=== PATIENT | female | born 1945 | race Caucasian/White ===

== ENCOUNTER 2022-09-26 07:52 | Observation (INO) | payer MEDICARE ==
[2022-09-25 15:30] LABS: BASOPHILS % (AUTO) 0.9 % (0.0-5.0); EOSINOPHILS % (AUTO) 1.9 % (0.0-8.0); HEMATOCRIT 40.2 % (36-48); LYMPHOCYTES % (AUTO) 29.9 % (21.0-51.0); MEAN CORPUSCULAR HEMOGLOBIN 30.3 pg (27.0-33.0); MEAN CORPUSCULAR HGB CONC 32.6 g/dL (32.0-36.0); MEAN CORPUSCULAR VOLUME 92.8 fL (79-99); MONOCYTES % (AUTO) 7.1 % (3.0-13.0); NEUTROPHILS % (AUTO) 59.6 % (40.0-77.0); PLATELET COUNT (AUTO) 250 K/uL (130-400); RED BLOOD CELL COUNT(AUTO) 4.33 MIL/uL (4.00-5.50); RED CELL DISTRIBUTION WIDTH 12.4 % (11.0-15.5); WHITE BLOOD COUNT (AUTO) 7.8 K/uL (4.8-10.8)
[2022-09-25 15:57] LABS: CREATININE 0.6 mg/dL (0.5-1.5); POTASSIUM 3.4 mmol/L (3.5-5.1)
[2022-09-25 16:05] VITALS: BP 152/80
[2022-09-26] VITALS (26 sets, daily range): BP systolic 105–196; BP diastolic 53–94
[~2022-09-26] VITALS: Ht 157.5 cm; Wt 77.6 kg
[2022-09-26] MEDS: TRANEXAMIC ACID 1000MG/10ML IJ SCH ×2 (06:00→13:20)
[~2022-09-26 07:52] MED LIST: ALEN35TA53 PO; ATOR20TA65 PO; BACL5TAB PO; BUPR100T13 PO; CLINDAMYCIN IVPB 600MG/50ML 50 ML IV SCH; GABA-529 PO; LACTATED RINGERS 1000ML 1,000 ML IV SCH; LORA10TA7 PO; LOSA50TA64 PO; METF-444 PO; METO-408 PO; MONT-39 PO; MULT-1367 PO; PANT20TA18 PO; SERT-440 PO; TOPI50TA24 PO; calcium PO; fluticasone NASAL
[2022-09-26] MEDS ORDERED: ROPIVICAINE 250MG+KETOROLAC 15MG+EPINEPHRINE 0.3+CLONIDINE 80 IV PRN ×5 (08:00)
[2022-09-26] MEDS ORDERED: 0.9%NACL 1000ML 1,000 ML IV ONE (08:11)
[2022-09-26] MEDS ORDERED: POTASSIUM CHLORIDE 10% ELIXIR 20 MEQ/15 ML UDCUP PO PRN (09:30)
[2022-09-26] MEDS ORDERED: ONDANSETRON 4MG INJ IVP PRN (09:30)
[2022-09-26] MEDS ORDERED: LIDOCAINE HCL-MPF 1% 2ML VIAL IV PRN (09:30)
[2022-09-26] MEDS ORDERED: POTASSIUM CHLORIDE 20MEQ/100ML 100 ML IV PRN (09:30)
[2022-09-26] MEDS ORDERED: MORPHINE 4 MG SYG IVP PRN (09:30)
[2022-09-26] MEDS ORDERED: HYDROCODONE/ACETAMINOPHEN 5/325 MG TAB PO PRN (09:30)
[2022-09-26] MEDS ORDERED: FERROUS FUMARATE 324 MG TABLET PO PRN (09:30)
[2022-09-26] MEDS: 0.9%NACL 1000ML 1,000 ML IV SCH ×2 (09:30→22:23)
[2022-09-26] MEDS ORDERED: TRANEXAMIC ACID 1000MG/10ML ONE (09:53)
[2022-09-26] MEDS: INSULIN HUMULIN R 100 UNIT/ML 3ML SQ SCH ×3 (11:30→19:48)
[2022-09-26] MEDS ORDERED: FENTANYL CITRATE PF 50 MCG/1 ML 5ML AMP IV ONE (11:59)
[2022-09-26] MEDS ORDERED: GLYCOPYRROLATE 1 MG/5 ML SYRINGE ONE (11:59)
[2022-09-26] MEDS ORDERED: ROCURONIUM 10MG/1ML SYR 10 MG/ML ML ONE (11:59)
[2022-09-26] MEDS ORDERED: LIDOCAINE PF 100MG/5ML (2%) SYRINGE 5ML ONE (11:59)
[2022-09-26] MEDS ORDERED: PROPOFOL 10 MG/ML 20ML VIAL IV ONE (11:59)
[2022-09-26] MEDS: IBUPROFEN 800MG + NS 250ML IV SCH ×2 (12:30→19:47)
[2022-09-26] MEDS ORDERED: ONDANSETRON 4MG INJ ONE (12:44)
[2022-09-26] MEDS ORDERED: HYDROMORPHONE 1 MG INJ ONE (13:31)
[2022-09-26] MEDS ORDERED: CEFAZOLIN SODIUM 1 GM VIAL IVP SCH (14:30)
[2022-09-26] MEDS ORDERED: NEOSTIGMINE 5MG/5ML SYR IV ONE (14:49)
[2022-09-26] MEDS: CLINDAMYCIN IVPB 300MG/50ML 50 ML IV SCH ×2 (15:00→19:47)
[2022-09-26] MEDS ORDERED: HYDRALAZINE 20MG/ML VIAL ONE (15:17)
[2022-09-26] MEDS: ACETAMINOPHEN 1,000 MG/100 ML VIAL IV SCH ×2 (16:17→21:57)
[2022-09-26] MEDS: MONTELUKAST SODIUM 10 MG TAB PO SCH (19:46)
[2022-09-26] MEDS: GABAPENTIN 100 MG CAPSULE PO SCH (19:46)
[2022-09-26] MEDS: ASPIRIN 81 MG EC TAB PO SCH (19:46)
[2022-09-26] MEDS: BUPROPION 100 MG PO SCH (19:48)
[2022-09-26] MEDS: KCL 20 MEQ ERTAB PO PRN ×2 (19:48→23:49)
[2022-09-26] MEDS: TOPIRAMATE 100 MG TAB PO SCH (19:48)
[2022-09-26] MEDS: HYDROCODONE/ACETAMINOPHEN 10/325 MG TAB PO PRN (23:50)
[2022-09-27] VITALS: BP 103/71
[2022-09-27 04:00] VITALS: BP 124/54
[2022-09-27] MEDS: IBUPROFEN 800MG + NS 250ML IV SCH (04:50)
[2022-09-27] MEDS: CLINDAMYCIN IVPB 300MG/50ML 50 ML IV SCH (04:50)
[2022-09-27] MEDS: ACETAMINOPHEN 1,000 MG/100 ML VIAL IV SCH (04:50)
[2022-09-27 05:37] LABS: HEMATOCRIT 38.7 % (36-48); MEAN CORPUSCULAR HEMOGLOBIN 30.9 pg (27.0-33.0); MEAN CORPUSCULAR HGB CONC 32.6 g/dL (32.0-36.0); MEAN CORPUSCULAR VOLUME 94.9 fL (79-99); RED BLOOD CELL COUNT(AUTO) 4.08 MIL/uL (4.00-5.50); RED CELL DISTRIBUTION WIDTH 12.7 % (11.0-15.5); WHITE BLOOD COUNT (AUTO) 11.5 K/uL (4.8-10.8)
[2022-09-27 05:47] LABS: CREATININE 0.7 mg/dL (0.5-1.5); POTASSIUM 3.6 mmol/L (3.5-5.1)
[2022-09-27] MEDS: INSULIN HUMULIN R 100 UNIT/ML 3ML SQ SCH ×4 (06:05→20:48)
[2022-09-27] MEDS: KCL 20 MEQ ERTAB PO PRN ×2 (06:24→08:40)
[2022-09-27] MEDS: HYDROCODONE/ACETAMINOPHEN 10/325 MG TAB PO PRN ×3 (06:24→20:54)
[2022-09-27] MEDS: PANTOPRAZOLE 40 MG TAB DR PO SCH (08:39)
[2022-09-27] MEDS: METOPROLOL SUCCINATE 25 MG TAB.SR.24H PO SCH (08:40)
[2022-09-27] MEDS: ASPIRIN 81 MG EC TAB PO SCH ×2 (08:40→20:46)
[2022-09-27] MEDS: POLYETHYLENE GLYCOL 3350 17 GM POWD.PACK PO SCH (08:40)
[2022-09-27] MEDS: METFORMIN HCL 500 MG TABLET PO SCH (08:40)
[2022-09-27] MEDS: BACLOFEN 10 MG TABLET PO SCH (08:40)
[2022-09-27] MEDS: BUPROPION 100 MG PO SCH ×2 (08:40→20:48)
[2022-09-27] MEDS: SERTRALINE HCL 50 MG TABLET PO SCH (08:40)
[2022-09-27] MEDS ORDERED: LOSARTAN 50 MG TABLET PO SCH (09:00)
[2022-09-27] MEDS: TOPIRAMATE 100 MG TAB PO SCH ×2 (09:00→20:47)
[2022-09-27 12:00] VITALS: BP 118/59
[2022-09-27 16:00] VITALS: BP 132/94
[2022-09-27 20:15] VITALS: BP 142/68
[2022-09-27] MEDS: MONTELUKAST SODIUM 10 MG TAB PO SCH (20:46)
[2022-09-27] MEDS: GABAPENTIN 100 MG CAPSULE PO SCH (20:46)
[2022-09-27 23:13] VITALS: BP 136/66
[2022-09-28 03:59] VITALS: BP 139/81
[2022-09-28] MEDS: HYDROCODONE/ACETAMINOPHEN 10/325 MG TAB PO PRN ×3 (06:50→13:27)
[2022-09-28] MEDS: INSULIN HUMULIN R 100 UNIT/ML 3ML SQ SCH ×3 (06:52→16:30)
[2022-09-28 08:00] VITALS: BP 128/61
[2022-09-28] MEDS: BUPROPION 100 MG PO SCH (09:00)
[2022-09-28] MEDS: POLYETHYLENE GLYCOL 3350 17 GM POWD.PACK PO SCH (09:00)
[2022-09-28] MEDS: TOPIRAMATE 100 MG TAB PO SCH (09:11)
[2022-09-28] MEDS: METFORMIN HCL 500 MG TABLET PO SCH (09:12)
[2022-09-28] MEDS: METOPROLOL SUCCINATE 25 MG TAB.SR.24H PO SCH (09:12)
[2022-09-28] MEDS: BACLOFEN 10 MG TABLET PO SCH (09:12)
[2022-09-28] MEDS: PANTOPRAZOLE 40 MG TAB DR PO SCH (09:12)
[2022-09-28] MEDS: ASPIRIN 81 MG EC TAB PO SCH (09:12)
[2022-09-28] MEDS: SERTRALINE HCL 50 MG TABLET PO SCH (09:12)
[2022-09-28 11:49] VITALS: BP 147/68
[2022-09-28 15:48] VITALS: BP 139/65
[2022-09-29] MEDS ORDERED: BISACODYL 10 MG SUPP.RECT RC PRN (09:30)
== END 2022-09-28 19:25 ==
LOC: DAH 07:52 → DAHIP 07:53 → DAH 07:53 → 3AH 17:17
PROVIDERS: ADMIT Orthopaedic Surgery; ATTEND Orthopaedic Surgery
DX: M17.12 Unilateral primary osteoarthritis, left knee (principal); Z20.822 Contact with and (suspected) exposure to COVID-19; I10 Essential (primary) hypertension; E11.9 Type 2 diabetes mellitus without complications; Z79.899 Other long term (current) drug therapy; Z68.31 Body mass index [BMI] 31.0-31.9, adult
CPT/HCPCS: 80048 ×2; 85025; 87426; 36415 ×2; 87641; 27447; 96365; 96367; 96368; 82948 ×10; 97039 ×4; 96366; 85027; 97161; 97116 ×4; 97530 ×3; G0378 ×52; A4663; J7030 ×2; A4649 ×4; J3010; J1170; J3490 ×4; J2710; J2001; J0171; J0360; J2704; J2405; J2795; J1885; J1741; J0735; G0168; C1776 ×4; A6255; A6254; A5120; A4215; A4223; A4222; A4221

== ENCOUNTER 2024-08-01 10:59 | Inpatient (IN) | payer MEDICARE ==
[~2024-08-01] VITALS: Ht 157.5 cm; Wt 85.7 kg
[~2024-08-01 10:59] MED LIST changes: -CLINDAMYCIN IVPB 600MG/50ML 50 ML IV SCH; -LACTATED RINGERS 1000ML 1,000 ML IV SCH; -LOSA50TA64 PO; -MULT-1367 PO; +TOPI-97 PO; -TOPI50TA24 PO; -calcium PO
--- NOTE | 2024-08-01 11:05 | NUR ---
PT WAS ASSIGNED TO MY ED BED 19 BUT NOT PLACED IN THERE YET
--- NOTE | 2024-08-01 11:12 | EKG ---
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
--- NOTE | 2024-08-01 11:18 | NUR ---
PT JUST NOW PLACED IN MY ED BED 19
--- NOTE | 2024-08-01 11:37 | ERN ---
General Chief Complaint: Diarrhea Stated Complaint: DIARRHEA Time Seen by MD: 11:01 History of Present Illness Initial Comments 79-year-old female who presents for diarrhea. Patient reports that in April, about three months ago, she began with diarrhea. Has been waxing and waning but over the last few days she has been going 5+ times a day with the explosive watery diarrhea. She reports that it comes fast she can not make it to the restroom. She reports some lower abdominal cramping. No rectal pain. No vomiting. No fevers. She was p.o. tolerant, but every time she eats she stools. She has been to her primary doctor without any studies performed. She reports that it is getting bad enough that she was having a hard time with her ADLs because she is frequently stooling. She has not visited a GI doctor. She has been taking Imodium multiple times a day. Medical history: Diabetes, hypertension Surgical history: Appendectomy, cholecystectomy, hysterectomy PCP: Diana Allergies: Coded Allergies: Penicillins (Unverified Allergy, Unknown, 09/25/22) Sulfa (Sulfonamide Antibiotics) (Unverified Allergy, Unknown, 09/25/22) formaldehyde (Unverified Allergy, Unknown, 09/25/22) levofloxacin (Unverified Allergy, Unknown, 09/25/22) Home Meds Reported Medications Topiramate (Topiramate) 50 Mg Tablet, 50 MG PO BID, TAB 09/25/22 Sertraline HCl (Sertraline HCl) 100 Mg Tablet, 150 MG PO AM, TAB 09/25/22 Pantoprazole Sodium (Pantoprazole Sodium) 20 Mg Tablet.dr, 20 MG PO AM, TAB 09/25/22 Montelukast Sodium (Montelukast Sodium) 10 Mg Tablet, 10 MG PO HS, TAB 09/25/22 Metoprolol Succinate (Metoprolol Succinate) 25 Mg Tab.er.24h, 25 MG PO AM, TAB 09/25/22 Metformin HCl (Metformin HCl) 500 Mg Tablet, 500 MG PO AM, TAB 09/25/22 Loratadine (Loratadine) 10 Mg Tablet, 10 MG PO AM, TAB 09/25/22 Gabapentin (Gabapentin) 100 Mg Capsule, 100 MG PO HS, CAP 09/25/22 [fluticasone] No Conflict Check, 2 SPRAYS NASAL AD PRN for allergies 09/25/22 Bupropion HCl (Bupropion HCl) 100 Mg Tablet, 100 MG PO BID, TAB 09/25/22 Baclofen (Baclofen) 5 Mg Tablet, 5 MG PO DAILY, TAB 09/25/22 Atorvastatin Calcium (Atorvastatin Calcium) 20 Mg Tablet, 20 MG PO HS, TAB 09/25/22 Alendronate Sodium (Alendronate Sodium) 35 Mg Tablet, 35 MG PO weekly, TAB 09/25/22 Past Medical History Past Medical History: Diabetes-Type II, High Cholesterol, Hypertension Past Surgical History: Appendectomy, Cholecystectomy, Other Surgical History Other: BILAT KNEE ROS Dictation CONSTITUTIONAL: No chills, no fever, no weakness, no diaphoresis, no malaise. HEAD/FACE: No signs of trauma. EENT: No eye pain, no blurred vision, no tearing, no double vision, no ear pain, no ear discharge, no nose pain, no nasal congestion, no throat pain, no throat swelling, no mouth pain. RESPIRATORY: No cough, no orthopnea, no SOB, no stridor, no wheezing. CARDIOVASCULAR: No chest pain, no edema, no palpitations, no syncope. GASTROINTESTINAL/ABDOMINAL: Diarrhea GENITOURINARY: No abnormal discharge, no dysuria, no frequent urination, no hematuria. No complaints of pain in the genitals. MUSCULOSKELETAL: No back pain, no gout, no joint pain, no joint swelling, no muscle pain, no muscle stiffness, no neck pain. INTEGUMENTARY: No change in color, no change in hair/nails, no dryness, no lesion, no lumps, no rash. NEUROLOGICAL/PSYCH: No anxiety, not depressed, no emotional problem, no headache, no numbness, no pre-existing deficit, no history of seizures, no tremors, no weakness. HEMATOLOGIC/LYMPHATIC: Not anemic, no history of blood clots, no apparent bleeding, no bruising, glands not swollen. All Systems Negative, Except as Noted. Physical Exam Physical Exam Dictation VITAL SIGNS: Reviewed. GENERAL APPEARANCE: Alert, oriented x3, no acute distress, HEAD AND FACE: Non-traumatic. EYES: PERRL, pink conjunctivas, eyelid no trauma, anterior chamber clear. EARS: Pinnas intact and no signs of trauma or erythema. Ear canals clear and no discharge. TMs no erythema. NOSE: No discharge, no bleeding. OROPHARYNX: Mouth normal, teeth no caries, tongue pink. Pharynx clear, no erythema. Tonsils no exudates, no abscesses noted. Mucous membrane moist. NECK: Supple, non-tender, no thyromegaly, no masses, no JVD, no bruits. BREAST: Deferred. CHEST: No tenderness, no crepitus, no paradoxical movement, no retractions. LUNGS: Clear, well-ventilated, symmetric, no rales, no wheezing, no rhonchi, no stridor, good breath sounds bilaterally. HEART: Regular rate, regular rhythm, no murmur, no gallops. VASCULAR: No peripheral edema. ABDOMEN: Soft, positive bowel sounds, nondistended, no guarding, nontender, no rebound, no masses no hepatomegaly, no splenomegaly, no Tyler's sign, no hernias. RECTAL: Deferred. GENITAL: Deferred. NEUROLOGICAL: Normal speech, gross motor function intact, gross sensory function intact. MUSCULOSKELETAL: Neck nontender, full range of motion, back nontender, full range of motion. EXTREMITIES: Nontender, full range of motion. SKIN: Color pink, dry, no turgor, no rash, no lacerations, no abrasions, no contusions. LYMPHATICS: Deferred. Results Laboratory and Microbiology Lab and Micro Result Laboratory Tests Test 08/01/24 11:30 08/01/24 11:37 Urine Color YELLOW (YELLOW) Urine Appearance CLOUDY (CLEAR) H Urine pH 5.5 (5.0-8.0) Urine Specific [place] 1.023 (1.001-1.031) Urine Protein 70 mg/dL (NEGATIVE) H Urine Glucose (UA) NEGATIVE mg/dL (NEGATIVE) Urine Ketones NEGATIVE mg/dL (NEGATIVE) Urine Occult Blood LARGE (NEGATIVE) H Urine Nitrate NEGATIVE (NEGATIVE) Urine Bilirubin NEGATIVE mg/dL (NEGATIVE) Urine Urobilinogen 0.2 mg/dL (0.2-1.0) Urine Leukocyte Esterase 500 Yousif/uL (NEGATIVE) H Urine RBC 26-50 /HPF (0-1) H Urine WBC TNTC /HPF (0-1) H Urine Squamous Epithelial Cells RARE /HPF (0-2) Urine Bacteria FEW /HPF (None Seen) Urine Hyaline Casts 2-5 /LPF (0-1 /LPF) H White Blood Count 5.0 K/uL (4.8-10.8) Red Blood Count 4.69 MIL/uL (4.00-5.50) Hemoglobin 14.4 g/dL (12.0-16.0) Hematocrit 44.1 % (36-48) Mean Corpuscular Volume 94.0 fL (79-99) Mean Corpuscular Hemoglobin 30.7 pg (27.0-33.0) Mean Corpuscular Hemoglobin Concent 32.7 g/dL (32.0-36.0) Red Cell Distribution Width 12.2 % (11.0-15.5) Platelet Count 205 K/uL (130-400) Mean Platelet Volume 10.1 fL (7.5-10.5) Immature Granulocyte % (Auto) 0.4 % (0-1) Neutrophils (%) (Auto) 63.0 % (40.0-77.0) Lymphocytes (%) (Auto) 22.9 % (21.0-51.0) Monocytes (%) (Auto) 10.9 % (3.0-13.0) Eosinophils (%) (Auto) 2.0 % (0.0-8.0) Basophils (%) (Auto) 0.8 % (0.0-5.0) Neutrophils # (Auto) 3.1 K/uL (1.8-7.7) Lymphocytes # (Auto) 1.1 K/uL (1.0-4.8) Monocytes # (Auto) 0.5 K/uL (0.1-1.0) Eosinophils # (Auto) 0.10 K/uL (0.00-0.70) Basophils # (Auto) 0.04 K/uL (0.00-0.20) Absolute Immature Granulocyte (auto 0.02 K/uL (0-1) Nucleated Red Blood Cells 0.0 % (0.0-0.19) Sodium Level 138 mmol/L (136-145) Potassium Level 3.2 mmol/L (3.5-5.1) L Chloride Level 103 mmol/L (101-111) Carbon Dioxide Level 23 mmol/L (21-32) Blood Urea Nitrogen 16 mg/dL (7-18) Creatinine 0.7 mg/dL (0.5-1.0) Glomerular Filtration Rate Calc 87 mL/min (>90) Random Glucose 106 mg/dL (70-105) H Total Calcium 9.0 mg/dL (8.5-10.1) Total Bilirubin 0.8 mg/dL (0.2-1.0) Direct Bilirubin 0.1 mg/dL (0.0-0.3) Aspartate Amino Transf (AST/SGOT) 44 U/L (10-37) H Alanine Aminotransferase (ALT/SGPT) 42 U/L (12-78) Alkaline Phosphatase 86 U/L (50-136) C-Reactive Protein, Quantitative 26.30 mg/L (0.5-3.0) H Total Protein 7.2 g/dL (6.0-8.3) Albumin 3.6 g/dL (3.5-5.0) Lipase 21 U/L (16-77) MDM CC: Diarrhea, multiple episodes daily increasing recently Historian: Patient Comorbidities: Advanced age, diabetes, hypertension, dyslipidemia, osteoporosis, neuropathy Limitations by social determinants of health: None differential diagnosis: Dehydration, electrolyte abnormality, infectious cause, inflammatory bowel disease, other. Vital signs: Stable remained stable in the ER. Labs no leukocytosis no anemia. Metabolic panel shows, CRP is mildly elevated at 26 otherwise lipase and liver enzymes are all normal. Urinalysis does show occult blood leuk esterase WBCs. We will treat his UTI. CT scan of the abdomen and pelvis with contrast per my independent interpretation shows some generalized gastrointestinal swelling consistent with an enteritis. There is no free air or major surgical pathology per independent interpretation. Patient received 1 L normal saline, Rocephin , potassium bicarb in the ER. We will admit for dehydration, hypokalemia, UTI. consultation: Hospitalist for admission. ED Course Orders Procedure Category Date Status Time Vital Signs Per CPOE 08/01/24 Transmitted Routine 11: Saline Lock Iv CPOE 08/01/24 Transmitted 11:02 Cbc With Differential LAB 08/01/24 Complete 11:02 Lipase LAB 08/01/24 Complete 11:02 Urinalysis Profile LAB 08/01/24 Complete 11:02 12 Lead Ekg Tracing- EKG 08/01/24 Resulted Technical 11:02 Basic Metabolic Panel LAB 08/01/24 Complete 11:02 Stool Panel Gi By Pcr LAB 08/01/24 Logged 11:12 Hepatic Function Panel LAB 08/01/24 Complete 11:12 0.9%Nacl 1000ml (Ns PHA 08/01/24 Complete 1000ml) 11:30 Ct Abdomen/Pelvis CT 08/01/24 Taken W/Contrast 11:31 Culture Urine CRISTOFER 08/01/24 Logged 12:23 Crp Quantitative LAB 08/01/24 Complete 11:37 Iohexol (Omnipaque) PHA 08/01/24 Complete 13:13 Iohexol (Omnipaque) PHA 08/01/24 Complete 13:27 Current Medications Medications (Trade) Dose Ordered Sig/Edison Route PRN Reason Start Time Stop Time Status Last Admin Dose Admin Iohexol (Omnipaque) 75 ml STK-MED ONCE IV 08/01/24 13:27 08/01/24 13:27 DC Iohexol (Omnipaque) 35,000 mg STK-MED ONCE IV 08/01/24 13:13 08/01/24 13:14 DC Sodium Chloride 1,000 ml @ 0 mls/hr ONCE ONCE IV 08/01/24 11:30 08/01/24 11:31 DC 08/01/24 12:38 Vital Signs Date Time Temp Pulse Resp B/P (MAP) Pulse Ox O2 Delivery O2 Flow Rate FiO2 08/01/24 11:00 98.4 91 20 152/84 96 Room Air 0 DX & DISP Disposition: Inpatient Departure Impression: Primary Impression: Diarrhea Additional Impressions: Hypokalemia, Dehydration, UTI (urinary tract infection) Condition: Stable Referrals: RONALD WALKER MD (PCP) RADHA LOPEZ DO Aug 01, 2024 11:37
[2024-08-01 12:03] LABS: BASOPHILS # (AUTO) 0.04 K/uL (0.00-0.20); BASOPHILS % (AUTO) 0.8 % (0.0-5.0); HEMATOCRIT 44.1 % (36-48); IMMATURE GRANULOCYTE ABSOLUTE 0.02 K/uL (0-1); LYMPHOCYTES # (AUTO) 1.1 K/uL (1.0-4.8); LYMPHOCYTES % (AUTO) 22.9 % (21.0-51.0); MEAN CORPUSCULAR HEMOGLOBIN 30.7 pg (27.0-33.0); MEAN CORPUSCULAR HGB CONC 32.7 g/dL (32.0-36.0); MONOCYTES # (AUTO) 0.5 K/uL (0.1-1.0); MONOCYTES % (AUTO) 10.9 % (3.0-13.0); NEUTROPHILS # (AUTO) 3.1 K/uL (1.8-7.7); PLATELET COUNT (AUTO) 205 K/uL (130-400); RED BLOOD CELL COUNT(AUTO) 4.69 MIL/uL (4.00-5.50); RED CELL DISTRIBUTION WIDTH 12.2 % (11.0-15.5)
[2024-08-01 12:12] LABS: ALBUMIN 3.6 g/dL (3.5-5.0); BILIRUBIN,DIRECT 0.1 mg/dL (0.0-0.3); BILIRUBIN,TOTAL 0.8 mg/dL (0.2-1.0); TOTAL PROTEIN, SERUM 7.2 g/dL (6.0-8.3)
[2024-08-01 12:21] LABS: APPEARANCE,URINE CLOUDY (CLEAR); BILIRUBIN,URINE NEGATIVE (NEGATIVE); COLOR,URINE YELLOW (YELLOW); GLUCOSE, URINE (UA) NEGATIVE (NEGATIVE); KETONES,URINE NEGATIVE (NEGATIVE); LEUKOCYTE ESTERASE ,URINE 500 Leu/uL (NEGATIVE); NITRATE,URINE NEGATIVE (NEGATIVE); OCCULT BLOOD,URINE LARGE (NEGATIVE); PH,URINE 5.5 (5.0-8.0); PROTEIN,URINE 70 mg/dL (NEGATIVE); UROBILINOGEN,URINE 0.2 mg/dL (0.2-1.0)
[2024-08-01 12:22] LABS: ADD UA MICROSCOPIC YES
[2024-08-01 12:30] LABS: BACTERIA,URINE FEW /HPF (None Seen); MUCUS,URINE MANY LPF (None Seen); RBC,URINE 26-50 /HPF (0-1); SQUAMOUS EPITHELIAL CELL,UR RARE /HPF (0-2); WBC,URINE TNTC /HPF (0-1)
[2024-08-01] MEDS: 0.9%NACL 1000ML 1,000 ML IV ONE (12:38)
[2024-08-01 12:46] LABS: CREATININE 0.7 mg/dL (0.5-1.0); POTASSIUM 3.2 mmol/L (3.5-5.1)
[2024-08-01] MEDS ORDERED: IOHEXOL 350 MG/ML 100ML INFUS..BTL IV ONE (13:13)
[2024-08-01] MEDS ORDERED: IOHEXOL-350 75 ML VIAL IV ONE (13:27)
--- NOTE | 2024-08-01 13:48 | NUR ---
PT JUST RETURNED FROM CT SCAN
--- NOTE | 2024-08-01 14:04 | HMCIMG ---
CT ABDOMEN/PELVIS W/CONTRAST REASON: diarrhea, lower abd pain COMPARISON: None. TECHNIQUE: Images are obtained from lung bases through the symphysis pubis following IV contrast, 75 cc Omnipaque 350. FINDINGS: Lung bases are clear. There are no focal liver lesions. There are normal-appearing kidneys.. Spleen and pancreas appear unremarkable. There has been a previous cholecystectomy. There are mildly prominent fluid-filled loops of large and small bowel. There is no evidence of transition zone. Findings are nonspecific, most consistent with gastroenteritis or ileus. There is no evidence of obstruction. The appendix was not separately identified. There is no evidence of free fluid or intraperitoneal air. There are no focal fluid collections. Aorta and retroperitoneum appear normal as do pelvic soft tissue structures. The anterior abdominal wall is intact. Osseous structures appear unremarkable. IMPRESSION: 1. Fluid-filled loops of large and small bowel, nonspecific, often a reflection of gastroenteritis or ileus. 2. Absent gallbladder 3. Otherwise unremarkable exam. CT was performed with one or more following dose reduction techniques: automated exposure control, adjustment of the mA and kv according to patient's size, or use of a iterative reconstruction technique.
[2024-08-01] MEDS: cefTRIAXone 1G VIAL IVPB ONE (14:32)
--- NOTE | 2024-08-01 15:08 | NUR ---
DR ROSE WAS IN TO ASSESS/EVALUATE THE PT.
--- NOTE | 2024-08-01 15:29 | NUR ---
INFECTIOUS DISEASE CONSULT: DR VAZQUEZ JUST INFORMED OF PT CONSULT AND HAS RETURNED ACKNOWLEDGEMENT
[2024-08-01] MEDS ORDERED: MAGNESIUM 2GM PREMIX 50ML 50 ML IV SCH (15:30)
[2024-08-01] MEDS ORDERED: PoTASSium chl 10% ELIXIR 20MEQ 20 MEQ/15 ML UDCUP PO PRN (15:30)
[2024-08-01] MEDS ORDERED: PoTASSium chloRIDE 20MEQ/100ML 100 ML IV PRN (15:30)
[2024-08-01] MEDS ORDERED: ondanSETRON 4MG INJ IVP PRN (15:30)
[2024-08-01 15:50] LABS: INR 1.06 (0.85-1.15); PROTHROMBIN TIME 11.4 SEC (9.6-11.6)
[2024-08-01 15:52] LABS: PARTIAL THROMBOPLASTIN TIME 27.8 SEC (26.3-35.5)
[2024-08-01] MEDS: 0.9%NACL 1000ML 1,000 ML IV SCH (16:14)
--- NOTE | 2024-08-01 16:17 | NUR ---
BSC PLACED AT BEDSIDE
--- NOTE | 2024-08-01 16:42 | NUR ---
GI CONSULT: DR ROSE SPOKE W/GI DOCTOR
--- NOTE | 2024-08-01 17:18 | NUR ---
CT HEAD EXAM DELAY DUE TO PATIENT HAD A PRIOR ABD/PEL WITH IV CONTRAST. ER NURSE WAS NOTIFIED & NURSE WILL NOTIFY DOCTOR. CT HEAD WILL BE DONE LATER TODAY.
[2024-08-01] MEDS ORDERED: ALEN70TA80 PO (17:20)
[2024-08-01] MEDS ORDERED: ATOR40TA69 PO (17:20)
[2024-08-01] MEDS ORDERED: METO-391 PO (17:20)
[2024-08-01] MEDS ORDERED: FLUT16H NS (17:20)
[2024-08-01] MEDS ORDERED: FURO40TA7 PO (17:20)
--- NOTE | 2024-08-01 17:20 | NUR ---
MEDICATION RECONCILIATION: DONE
[2024-08-01] MEDS: metOPROLol sucCINATE 50 MG TAB.SR.24H PO SCH (17:40)
[2024-08-01] MEDS: PEG 3350/NA SULF,BICARB,CL/KCL 4000 ML SOLN PO SCH (17:40)
--- NOTE | 2024-08-01 17:45 | NUR ---
GI PREP: GOLYTLY AT BEDSIDE AND PT NOW DRINKING
--- NOTE | 2024-08-01 18:20 | NUR ---
BED ASSIGNMENT: Addendum: 08/01/24 at 1830 by [email or web address] BED 306 ASSIGNED BY Oliver WU RN
--- NOTE | 2024-08-01 18:25 | HP ---
[facility] H[facility]ORY [facility] PHYS[facility] Date of Service: Aug 01, 2024 Time of Service: 18:25 HISTORY OF PRESENT ILLNESS: Date of Service: 08/01/2024 79-year-old female with underlying history of hypertension, SVT, hyperlipidemia, osteoporosis, history of multiple medication allergies who presented to the ER for further evaluation of diarrhea. Patient states that her symptoms started in April where she has been having nonbloody loose stool that has been persistent. She has about 4-5 episodes of diarrhea daily. She has been taking multiple doses of loperamide with no improvement of symptoms. She has seen her PCP multiple times but her symptoms have not improved. She denies any recent use of antibiotic therapy. Denies previous diagnosis of C diff infection. She has mild lower abdominal pain from underlying diarrhea. She had about three loose stool yesterday and she states that she has fecal incontinence as well. She denies any fevers or chills or prior GI or bowel disorder. She has had a colonoscopy about 3-5 years ago and she states that she had polyps removed. She has had long-time history of unsteady gait and generalized weakness. Previ ously she has had falls as well. Denies having previous history of stroke. Other than history of SVT, she denies any previous history of [place] or significant pulmonary comorbidities. He has been having generalized weakness from poor oral intake as well as nonresolving diarrhea. Patient on presentation to the hospitalist noted to be afebrile and hemodynamically stable. Labs on presentation showed WBC count of 5000, hemoglobin of 14.4, platelet count of [id number]. CMP remarkable for sodium of 138, potassium 3.2, BUN of 16, creatinine of 0.7, magnesium of 1.7, AST of 44, ALT of 42, alkaline phosphatase of 86, C-reactive protein of 26.3. Patient underwent further evaluation with CT abdomen pelvis with IV contrast which showed fluid-filled loops of large and small bowel likely showing signs of gastroenteritis. We will admit this patient for further evaluation and management of dehydration, hypokalemia, hypomagnesemia, intractable nonresolving diarrhea. Consultation with GI and Infectious Disease will be requested. Urinalysis showed leukocyte esterase, pyuria, and bacteriuria. Patient has been started on IV Rocephin in the ER and has tolerated the antibiotic with no significant side effect, we will continue with IV Rocephin for management of urinary tract infection. REVIEW OF SYSTEMS CONSTITUTIONAL: Denies fevers, chills, or night sweats. No unintentional weight loss reported. NEUROLOGICAL: Denies headache, amaurosis fugax, motor weakness, sensory deficit, vertigo/spinning sensation, gait abnormalities, or tremors. ENT: No hearing loss, otalgia, otorrhea, rhinitis, rhinorrhea, hoarseness, or sore throat. CARDIOVASCULAR: Denies any exertional angina, dyspnea on exertion, orthopnea, paroxysmal nocturnal dyspnea, palpitations, life-threatening arrhythmias, claudication. PULMONARY: Denies any shortness of breath, cough, phlegm/sputum, hemoptysis, pleuritic chest pain. SLEEP: Denies morning headaches, daytime somnolence or napping. Denies difficulty falling asleep, staying asleep, waking from sleep. Denies knowledge of snoring. GASTROINTESTINAL: Persistent nonresolving diarrhea, mild lower quadrant abdominal pain, no significant nausea or vomiting GENITOURINARY: Denies frequency, urgency, nocturia, hematuria or incontinence (Storage/Irritative symptoms.) Low urinary stream, straining to void, urinary intermittency or hesitancy, splitting of the voiding stream, terminal dribbling. ENDOCRINOLOGIC: Denies polyuria, polydipsia, polyphagia or heat/cold intolerances. HEMATOLOGIC: Denies thrombophilia/previous clots, or coagulopathy/bleeding disorders. ONCOLOGIC: Denies personal history of malignancy. DERMATOLOGIC: Denies rashes or pruritus. PSYCHIATRIC: Denies any suicidal or homicidal ideation. Denies hallucinations. PAST MEDICAL HISTORY: [Hypertension, hyperlipidemia, chronic diarrhea ongoing since April with no improvement of symptoms, history of depression, history of SVT ] PAST SURGICAL HISTORY: [ Bilateral knee arthroplasty, cholecystectomy, appendectomy, history of skin cancer status post excision, hysterectomy, reports having colonoscopy about 3-5 years ago with removal of polyps ] PAST SOCIAL HISTORY: [ Denies active smoking or alcohol consumption ] FAMILY HISTORY: [ Family history of Parkinson's disease with son with Parkinson's disease, son is 55 years of age Allergies: Patient has allergic reaction to penicillin, sulfa, formaldehyde, levofloxacin Medications: Alendronate sodium 70 mg daily, Lipitor 40 mg daily, Flonase daily, Lasix p.r.n. 40 mg daily, metoprolol succinate 50 mg daily, baclofen 5 mg daily, montelukast 10 mg q.h.s.] Coded Allergies: Penicillins (Unverified Allergy, Unknown, 09/25/22) Sulfa (Sulfonamide Antibiotics) (Unverified Allergy, Unknown, 09/25/22) formaldehyde (Unverified Allergy, Unknown, 09/25/22) levofloxacin (Unverified Allergy, Unknown, 09/25/22) PHYSICAL EXAM GENERAL APPEARANCE: The patient is awake, alert, and oriented, appears dehydrated NEUROLOGICAL: Cranial nerves II-XII grossly intact. Motor is 5/5 in bilateral upper and lower extremities proximal to distal. No sensory deficits. HEENT: Face is symmetric. Pupils are equal and reactive. Extraocular movements are intact. NECK: Supple. No JVD. No thyromegaly. No submental, submandibular, pre- /postauricular, occipital or supraclavicular lymphadenopathy. CHEST: Normal chest expansion. No Telemetry. LUNGS: Absence of any rales, rhonchi or any wheezing. CARDIOVASCULAR: Regular. S1 and S2 normal. No appreciable rubs, murmurs or gallops. ABDOMEN: Soft, nontender, and nondistended. There is no rebound, voluntary guarding, or rigidity. : Deferred. No Yip. EXTREMITIES: Non-edematous and not cyanotic. No clubbing. Good capillary refill. SKIN: No skin breakdown. Vital Sign (Last 24 Hours) 08/01/24 08/01/24 16:30 18:00 Temp 98.2 Pulse 87 Resp 16 B/P (MAP) 129/74 Pulse Ox 97 O2 Delivery Room Air* O2 Flow Rate 0 FiO2 21 LABS: Laboratory: Test 08/01/24 11:37 08/01/24 11:30 Range/Units White Blood Count 5.0 4.8-10.8 K/uL Red Blood Count 4.69 4.00-5.50 MIL/uL Hemoglobin 14.4 12.0-16.0 g/dL Hematocrit 44.1 36-48 % Mean Corpuscular Volume 94.0 79-99 fL Mean Corpuscular Hemoglobin 30.7 27.0-33.0 pg Mean Corpuscular Hemoglobin Concent 32.7 32.0-36.0 g/dL Red Cell Distribution Width 12.2 11.0-15.5 % Platelet Count 205 130-400 K/uL Mean Platelet Volume 10.1 7.5-10.5 fL Immature Granulocyte % (Auto) 0.4 0-1 % Neutrophils (%) (Auto) 63.0 40.0-77.0 % Lymphocytes (%) (Auto) 22.9 21.0-51.0 % Monocytes (%) (Auto) 10.9 3.0-13.0 % Eosinophils (%) (Auto) 2.0 0.0-8.0 % Basophils (%) (Auto) 0.8 0.0-5.0 % Neutrophils # (Auto) 3.1 1.8-7.7 K/uL Lymphocytes # (Auto) 1.1 1.0-4.8 K/uL Monocytes # (Auto) 0.5 0.1-1.0 K/uL Eosinophils # (Auto) 0.10 0.00-0.70 K/uL Basophils # (Auto) 0.04 0.00-0.20 K/uL Absolute Immature Granulocyte (auto 0.02 0-1 K/uL Nucleated Red Blood Cells 0.0 0.0-0.19 % Prothrombin Time 11.4 9.6-11.6 SEC Prothromb Time International Ratio 1.06 0.85-1.15 Activated Partial Thromboplast Time 27.8 26.3-35.5 SEC Sodium Level 138 136-145 mmol/L Potassium Level 3.2 L 3.5-5.1 mmol/L Chloride Level 103 101-111 mmol/L Carbon Dioxide Level 23 21-32 mmol/L Blood Urea Nitrogen 16 7-18 mg/dL Creatinine 0.7 0.5-1.0 mg/dL Glomerular Filtration Rate Calc 87 >90 mL/min Random Glucose 106 H 70-105 mg/dL Total Calcium 9.0 8.5-10.1 mg/dL Magnesium Level 1.70 L 1.80-2.40 mg/dL Total Bilirubin 0.8 0.2-1.0 mg/dL Direct Bilirubin 0.1 0.0-0.3 mg/dL Aspartate Amino Transf (AST/SGOT) 44 H 10-37 U/L Alanine Aminotransferase (ALT/SGPT) 42 12-78 U/L Alkaline Phosphatase 86 50-136 U/L C-Reactive Protein, Quantitative 26.30 H 0.5-3.0 mg/L Total Protein 7.2 6.0-8.3 g/dL Albumin 3.6 3.5-5.0 g/dL Lipase 21 16-77 U/L Urine Color YELLOW YELLOW Urine Appearance CLOUDY H CLEAR Urine pH 5.5 5.0-8.0 Urine Specific [place] 1.023 1.001-1.031 Urine Protein 70 H NEGATIVE mg/dL Urine Glucose (UA) NEGATIVE NEGATIVE mg/dL Urine Ketones NEGATIVE NEGATIVE mg/dL Urine Occult Blood LARGE H NEGATIVE Urine Nitrate NEGATIVE NEGATIVE Urine Bilirubin NEGATIVE NEGATIVE mg/dL Urine Urobilinogen 0.2 0.2-1.0 mg/dL Urine Leukocyte Esterase 500 H NEGATIVE Yousif/uL Urine RBC 26-50 H 0-1 /HPF Urine WBC TNTC H 0-1 /HPF Urine Squamous Epithelial Cells RARE 0-2 /HPF Urine Bacteria FEW None Seen /HPF Urine Hyaline Casts 2-5 H 0-1 /LPF /LPF Current Medications Medications (Trade) Dose Ordered Sig/Edison Route PRN Reason Start Time Stop Time Status Last Admin Dose Admin Ceftriaxone Sodium (ROCEphine 1G INJ) 1 gm DAILY IVPB 08/02/24 14:00 08/09/24 14:00 Famotidine (Pepcid 20mg Vial) 20 mg BID IV 08/01/24 21:00 08/31/24 20:59 Magnesium Sulfate 50 ml @ 0 mls/hr PROTOCOL IV 08/01/24 15:30 08/31/24 15:29 Metoprolol Succinate (TopROL XL) 50 mg Q24H PO 08/01/24 17:00 08/31/24 16:59 08/01/24 17:40 50 MG Ondansetron HCl (zoFRAN 4MG INJ) 4 mg Q6H PRN IVP NAUSEA/VOMITING 08/01/24 15:30 08/31/24 15:29 Polyethylene Glycol/ Electrolytes (Golytely/Colyte Soln) 4,000 ml ONCE PO 08/01/24 15:43 08/01/24 23:59 08/01/24 17:40 4,000 ML Potassium Chloride 100 ml @ 100 mls/hr AD PRN IV POTASSIUM PROTOCOL 08/01/24 15:30 08/31/24 15:29 Potassium Chloride (K-Dur/Klor-Con 20meq) 20 meq AD PRN PO POTASSIUM PROTOCOL 08/01/24 15:30 08/31/24 15:29 Potassium Chloride (KCl 10% Elixir 20meq/15ml) 20 meq AD PRN PO POTASSIUM PROTOCOL 08/01/24 15:30 08/31/24 15:29 Sodium Chloride 1,000 ml @ 100 mls/hr Q10H IV 08/01/24 15:30 08/31/24 15:29 08/01/24 16:14 100 MLS/HR DIAGNOSTICS / RADIOLOGY: SERVICE 1131 REASON: diarrhea, lower abd pain ORDERING PHYSICIAN: RADHA LOPEZ DO PROCEDURE: ABD PEL W - CT ABDOMEN/PELVIS W/CONTRAST CT ABDOMEN/PELVIS W/CONTRAST REASON: diarrhea, lower abd pain COMPARISON: None. TECHNIQUE: Images are obtained from lung bases through the symphysis pubis following IV contrast, 75 cc Omnipaque 350. FINDINGS: Lung bases are clear. There are no focal liver lesions. There are normal-appearing kidneys.. Spleen and pancreas appear unremarkable. There has been a previous cholecystectomy. There are mildly prominent fluid-filled loops of large and small bowel. There is no evidence of transition zone. Findings are nonspecific, most consistent with gastroenteritis or ileus. There is no evidence of obstruction. The appendix was not separately identified. There is no evidence of free fluid or intraperitoneal air. There are no focal fluid collections. Aorta and retroperitoneum appear normal as do pelvic soft tissue structures. The anterior abdominal wall is intact. Osseous structures appear unremarkable. IMPRESSION: 1. Fluid-filled loops of large and small bowel, nonspecific, often a reflection of gastroenteritis or ileus. 2. Absent gallbladder 3. Otherwise unremarkable exam. CT was performed with one or more following dose reduction techniques: automated exposure control, adjustment of the mA and kv according to patient's size, or use of a iterative reconstruction technique. DICTATED BY: TIFFANY HUDSON MD DATE: 08/01/24 1352 ELECTRONICALLY SIGNED BY: TIFFANY HUDSON MD DATE: 08/01/24 0064 ASSESSMENT: Persistent nonresolving diarrhea with no improvement of outpatient treatment, POA Dehydration, POA Hypokalemia, POA Hypomagnesemia, POA Gastroenteritis, POA Urinary tract infection, POA History of multiple antibiotic allergies including penicillin, sulfa, levofloxacin, POA Underlying history of SVT, POA Hyperlipidemia, POA History of gait instability with fall (ongoing for several years), POA Frailty/debility, POA Octogenarian, POA PLAN: Admit to medical-surgical floor under telemetry monitoring IV hydration with NS at 100 mL/hour Patient will be placed on IV Rocephin daily for management of UTI Obtain stool studies including GI PCR panel, C diff panel, stool culture, stool ova parasite, fecal calprotectin We will request consultation with Gastroenterology for further workup and evaluation on nonresolving diarrhea ongoing for the past 3-4 months with no improvement with outpatient care. Patient has received multiple doses of Imodium as outpatient but continues to have persistent diarrhea We will request consultation with Infectious Disease, follow up urine culture Electrolytes will be repleted per protocol including potassium and magnesium Tentative plan for colonoscopy by GI tomorrow for further evaluation Patient to continue with metoprolol succinate 50 mg daily for management of SVT All labs will be repeated in the morning including CBC, CMP, magnesium, all home medications will be reconciled and updated We will obtain a CT head without contrast for further evaluation of gait instability and falls, patient has history of Parkinson's disease in family and will benefit from outpatient neurology follow up Date of service: 08/01/2024 Plan of care was discussed with patient and family at bedside, Dereck Decker MD Advanced Care Planning: Which of the following were discussed: Hospice care: Yes __ No _X_ Therapeutic options: Yes _X_ No __ Advance directives: Yes _X_ No __ Other discussions: Discussed with who?: Patient Voluntary nature of this service was explained to the patient? Yes _x_ No __ Amount of time spent: 20 minutes DERECK DECKER MD Aug 01, 2024 18:25
--- NOTE | 2024-08-01 18:25 | NUR ---
NO ANSWER ON FLOOR AT THIS TIME. ORDER FOR COLONSCOPY PROVIDED TO MOVER NED WU RN
[2024-08-01] MEDS ORDERED: fluTICasone proPIONate 50MCG/SPRAY 16 GM BOTTLE NS PRN (18:30)
--- NOTE | 2024-08-01 18:38 | NUR ---
REPORT JUST ENDED W/LIZ RN. SHE STATED THEY ARE CLEANING THE ROOM AND TO SEND PT UP AT 7PM/1900HRS
[2024-08-01 19:00] VITALS: BP 131/69; PULSE 82; RESP 18; TEMP 98.1
--- NOTE | 2024-08-01 19:20 | CONS ---
GASTROENTEROLOGY CONSULTATION NOTE Date of Consultation: Aug 01, 2024 Time of Consultation: 19:20 History of Present Illness: This is an 79-year-old female with past medical history of hypertension, SVT, hyperlipidemia, osteoporosis, multiple medication allergies who presented due to persistent diarrhea ongoing since April. Imaging revealing enterocolitis. She has mild hypokalemia. Review of Systems: CONSTITUTIONAL: No malaise or change in sensation of wellbeing. ENMT: No rhinorrhea, otorrhea, sinus pain, ear ache. CARDIOVASCULAR: No angina, palpitations, orthopnea or paroxysmal dyspnea. RESPIRATORY: No SOB. GASTROINTESTINAL: No abdominal pain, nausea, vomiting, diarrhea, hematemesis, melena or change in the patient's habitual bowel movements consistency/number. GENITOURINARY: No dysuria, hematuria or change in bladder continence. MUSCULOSKELETAL: No new muscle pain or decrease in muscular strength. No new joint swelling, redness or tenderness. SKIN: No new rash. Past Medical History: [ ] Past Surgical History: [ ] Past Social History: [ ] Family History: [ ] Coded Allergies: Penicillins (Unverified Allergy, Unknown, 09/25/22) Sulfa (Sulfonamide Antibiotics) (Unverified Allergy, Unknown, 09/25/22) formaldehyde (Unverified Allergy, Unknown, 09/25/22) levofloxacin (Unverified Allergy, Unknown, 09/25/22) Physical Exam: GEN: Awake, alert, oriented in person, time and place, and in no acute distress. HEENT: No sinus tenderness. Tympanic membranes were not examined. No rhinorrhea. Oral pharyngeal mucosa is pink, moist and within normal limits. Neck is supple with no cervical lymphadenopathy, thyromegaly or JVD. CHEST: Inspection, palpation and percussion of the chest were unremarkable. Lung auscultation revealed normal breath sounds bilaterally. CARDIAC: PMI is within normal limits. Heart sounds are regular. Normal S1, S2. No gallop or murmur. ABD: Soft, non-tender and not distended. No peritoneal signs on palpation. No organomegaly. Normal bowel sounds. EXT: No cyanosis or clubbing. No edema. SKIN: Intact. No rashes. JOINTS: No evidence of synovitis or acute arthritis. NEURO: Alert and oriented to name, place and person. Cranial nerve examination is unremarkable. No focal motor deficits. Normal speech. Gait is normal. Streng th is normal. Vital Sign (Last 24 Hours) 08/01/24 08/01/24 16:30 18:00 Temp 98.2 Pulse 87 Resp 16 B/P (MAP) 129/74 Pulse Ox 97 O2 Delivery Room Air* O2 Flow Rate 0 FiO2 21 Laboratory: [ ] Laboratory: Test 08/01/24 11:37 08/01/24 11:30 Range/Units White Blood Count 5.0 4.8-10.8 K/uL Red Blood Count 4.69 4.00-5.50 MIL/uL Hemoglobin 14.4 12.0-16.0 g/dL Hematocrit 44.1 36-48 % Mean Corpuscular Volume 94.0 79-99 fL Mean Corpuscular Hemoglobin 30.7 27.0-33.0 pg Mean Corpuscular Hemoglobin Concent 32.7 32.0-36.0 g/dL Red Cell Distribution Width 12.2 11.0-15.5 % Platelet Count 205 130-400 K/uL Mean Platelet Volume 10.1 7.5-10.5 fL Immature Granulocyte % (Auto) 0.4 0-1 % Neutrophils (%) (Auto) 63.0 40.0-77.0 % Lymphocytes (%) (Auto) 22.9 21.0-51.0 % Monocytes (%) (Auto) 10.9 3.0-13.0 % Eosinophils (%) (Auto) 2.0 0.0-8.0 % Basophils (%) (Auto) 0.8 0.0-5.0 % Neutrophils # (Auto) 3.1 1.8-7.7 K/uL Lymphocytes # (Auto) 1.1 1.0-4.8 K/uL Monocytes # (Auto) 0.5 0.1-1.0 K/uL Eosinophils # (Auto) 0.10 0.00-0.70 K/uL Basophils # (Auto) 0.04 0.00-0.20 K/uL Absolute Immature Granulocyte (auto 0.02 0-1 K/uL Nucleated Red Blood Cells 0.0 0.0-0.19 % Prothrombin Time 11.4 9.6-11.6 SEC Prothromb Time International Ratio 1.06 0.85-1.15 Activated Partial Thromboplast Time 27.8 26.3-35.5 SEC Sodium Level 138 136-145 mmol/L Potassium Level 3.2 L 3.5-5.1 mmol/L Chloride Level 103 101-111 mmol/L Carbon Dioxide Level 23 21-32 mmol/L Blood Urea Nitrogen 16 7-18 mg/dL Creatinine 0.7 0.5-1.0 mg/dL Glomerular Filtration Rate Calc 87 >90 mL/min Random Glucose 106 H 70-105 mg/dL Total Calcium 9.0 8.5-10.1 mg/dL Magnesium Level 1.70 L 1.80-2.40 mg/dL Total Bilirubin 0.8 0.2-1.0 mg/dL Direct Bilirubin 0.1 0.0-0.3 mg/dL Aspartate Amino Transf (AST/SGOT) 44 H 10-37 U/L Alanine Aminotransferase (ALT/SGPT) 42 12-78 U/L Alkaline Phosphatase 86 50-136 U/L C-Reactive Protein, Quantitative 26.30 H 0.5-3.0 mg/L Total Protein 7.2 6.0-8.3 g/dL Albumin 3.6 3.5-5.0 g/dL Lipase 21 16-77 U/L Urine Color YELLOW YELLOW Urine Appearance CLOUDY H CLEAR Urine pH 5.5 5.0-8.0 Urine Specific [place] 1.023 1.001-1.031 Urine Protein 70 H NEGATIVE mg/dL Urine Glucose (UA) NEGATIVE NEGATIVE mg/dL Urine Ketones NEGATIVE NEGATIVE mg/dL Urine Occult Blood LARGE H NEGATIVE Urine Nitrate NEGATIVE NEGATIVE Urine Bilirubin NEGATIVE NEGATIVE mg/dL Urine Urobilinogen 0.2 0.2-1.0 mg/dL Urine Leukocyte Esterase 500 H NEGATIVE Yousif/uL Urine RBC 26-50 H 0-1 /HPF Urine WBC TNTC H 0-1 /HPF Urine Squamous Epithelial Cells RARE 0-2 /HPF Urine Bacteria FEW None Seen /HPF Urine Hyaline Casts 2-5 H 0-1 /LPF /LPF Current Medications Medications (Trade) Dose Ordered Sig/Edison Route PRN Reason Start Time Stop Time Status Last Admin Dose Admin Atorvastatin Calcium (LIPItor 40MG) 40 mg HS PO 08/01/24 21:00 08/31/24 20:59 Baclofen (Baclofen) 5 mg DAILY PO 08/02/24 09:00 09/01/24 08:59 Ceftriaxone Sodium (ROCEphine 1G INJ) 1 gm DAILY IVPB 08/02/24 14:00 08/09/24 14:00 Famotidine (Pepcid 20mg Vial) 20 mg BID IV 08/01/24 21:00 08/31/24 20:59 Fluticasone Propionate (FLOnase 50 mcg/ spray 16g bottle) 1 SPRAY PER NARE DAILY PRN NS allergies 08/01/24 18:30 08/31/24 18:29 Magnesium Sulfate 50 ml @ 0 mls/hr PROTOCOL IV 08/01/24 15:30 08/31/24 15:29 Metoprolol Succinate (TopROL XL) 50 mg Q24H PO 08/01/24 17:00 08/31/24 16:59 08/01/24 17:40 50 MG Montelukast Sodium (SinguLAIR) 10 mg HS PO 08/01/24 21:00 08/31/24 20:59 Ondansetron HCl (zoFRAN 4MG INJ) 4 mg Q6H PRN IVP NAUSEA/VOMITING 08/01/24 15:30 08/31/24 15:29 Polyethylene Glycol/ Electrolytes (Golytely/Colyte Soln) 4,000 ml ONCE PO 08/01/24 15:43 08/01/24 23:59 08/01/24 17:40 4,000 ML Potassium Chloride 100 ml @ 100 mls/hr AD PRN IV POTASSIUM PROTOCOL 08/01/24 15:30 08/31/24 15:29 Potassium Chloride (K-Dur/Klor-Con 20meq) 20 meq AD PRN PO POTASSIUM PROTOCOL 08/01/24 15:30 08/31/24 15:29 Potassium Chloride (KCl 10% Elixir 20meq/15ml) 20 meq AD PRN PO POTASSIUM PROTOCOL 08/01/24 15:30 08/31/24 15:29 Sodium Chloride 1,000 ml @ 100 mls/hr Q10H IV 08/01/24 15:30 08/31/24 15:29 08/01/24 16:14 100 MLS/HR Diagnostics / Radiology: [COPY/PASTE HERE IF NO REPORTS PLEASE DELETE SECTION] Assessment: Diarrhea Plan: Plan: 1. NPO after MN 2. Colonoscopy in AM. I have discussed the risks, benefits, alternatives and potential complications. Questions were answered and the patient agrees to proceed. 3. Golytely 4 L po starting at 1700 4. Clear liquid diet avoiding red and purple colored liquids 5. Tap water enema in AM as needed 6. Please check Hg every 6 hours and transfuse to goal Hg 7-8. Please do not overtransfuse Thank you for allowing us to participate in the care of this patient! SANDRA PEREIRA [facility] Aug 01, 2024 19:20
--- NOTE | 2024-08-01 20:04 | NUR ---
SPOKE TO RN, RN WILL CALL WHEN READY TO BRING PT FOR CT EXAM
[2024-08-01] MEDS: PoTASSium chloRIDE 20MEQ ER 20 MEQ ERTAB PO ONE (20:30)
[2024-08-01] MEDS: monteLUKAST sodIUM 10 MG TAB PO SCH (20:36)
[2024-08-01] MEDS: FAMOTIDINE 20MG VIAL IV SCH (20:36)
[2024-08-01] MEDS: atorVAStatin 40 MG TABLET PO SCH (20:36)
[2024-08-01] MEDS: PoTASSium chloRIDE 20MEQ ER 20 MEQ ERTAB PO PRN (20:36)
[2024-08-01 20:40] VITALS: O2SAT 96
[2024-08-01] MEDS: MAGNESIUM 2GM PREMIX 50ML 50 ML IV SCH (23:45)
[2024-08-02] VITALS (24 sets, daily range): BP systolic 100–148; BP diastolic 46–77; PULSE 59–85; RESP 15–21; TEMP 97.2–98.4; O2SAT 96–98
[2024-08-02 06:02] LABS: BASOPHILS # (AUTO) 0.03 K/uL (0.00-0.20); BASOPHILS % (AUTO) 0.5 % (0.0-5.0); EOSINOPHILS # (AUTO) 0.09 K/uL (0.00-0.70); EOSINOPHILS % (AUTO) 1.6 % (0.0-8.0); HEMATOCRIT 38.6 % (36-48); IMMATURE GRANULOCYTE ABSOLUTE 0.02 K/uL (0-1); LYMPHOCYTES % (AUTO) 18.2 % (21.0-51.0); MEAN CORPUSCULAR HEMOGLOBIN 31.2 pg (27.0-33.0); MEAN CORPUSCULAR HGB CONC 32.9 g/dL (32.0-36.0); MEAN CORPUSCULAR VOLUME 94.8 fL (79-99); MONOCYTES # (AUTO) 0.5 K/uL (0.1-1.0); MONOCYTES % (AUTO) 9.5 % (3.0-13.0); NEUTROPHILS # (AUTO) 3.9 K/uL (1.8-7.7); NEUTROPHILS % (AUTO) 69.8 % (40.0-77.0); PLATELET COUNT (AUTO) 180 K/uL (130-400); RED BLOOD CELL COUNT(AUTO) 4.07 MIL/uL (4.00-5.50); RED CELL DISTRIBUTION WIDTH 12.3 % (11.0-15.5); WHITE BLOOD COUNT (AUTO) 5.6 K/uL (4.8-10.8)
[2024-08-02 06:31] LABS: ALBUMIN 3.2 g/dL (3.5-5.0); BILIRUBIN,TOTAL 0.8 mg/dL (0.2-1.0); CREATININE 0.6 mg/dL (0.5-1.0); MAGNESIUM 2.3 mg/dL (1.80-2.40); POTASSIUM 4.1 mmol/L (3.5-5.1); TOTAL PROTEIN, SERUM 6.2 g/dL (6.0-8.3)
[2024-08-02] MEDS ORDERED: LIDOCAINE PF 100MG/5ML (2%) SYRINGE 5ML ONE (07:58)
[2024-08-02] MEDS ORDERED: proPOFol 10 MG/ML 20ML VIAL IV ONE (07:58)
--- NOTE | 2024-08-02 08:36 | HMCIMG ---
Exam Type: CT HEAD/BRAIN W/O CONTRAST Clinical Information: hx of falls and syncope Comparison: None CT Dose Index (CTDI): 57.33 mGy Dose Length Product (DLP): 956.79 total mGy-cm Findings: There is low attenuation throughout the periventricular white matter locations, consistent with chronic small vessel ischemic changes. No acute intra- or extra-axial fluid collections are seen. There is no evidence of acute or chronic hemorrhage. There is no mass effect or shift of midline structures. There are no areas to suggest acute infarct. The skull windows show no significant abnormalities. IMPRESSION: 1. CHRONIC SMALL VESSEL ISCHEMIC CHANGES.
[2024-08-02] MEDS: BACLOFEN 10 MG TABLET PO SCH (09:03)
[2024-08-02] MEDS: cefTRIAXone 1G VIAL IVPB SCH (13:19)
--- NOTE | 2024-08-02 13:24 | PN ---
[facility] PROGRESS NOTE Date of Service: Aug 02, 2024 Time of Service: 13:17 SUBJECTIVE: 08/02 patient seen at bedside, no acute events overnight. She is pending colonoscopy today we will follow up postprocedure. She has been afebrile, hemodynamically stable saturating well on room air. Labs are unremarkable. No bowel movements recorded since admission. Will cancel ID consult as patient does not yet meet criteria for this consult. Urine growing gram negative rods, will continue with ceftriaxone REVIEW OF SYSTEMS 12 point review of systems negative unless noted in HPI PHYSICAL EXAM GENERAL APPEARANCE: The patient is awake, alert, and oriented, appears dehydrated NEUROLOGICAL: Cranial nerves II-XII grossly intact. Motor is 5/5 in bilateral upper and lower extremities proximal to distal. No sensory deficits. HEENT: Face is symmetric. Pupils are equal and reactive. Extraocular movements are intact. NECK: Supple. No JVD. No thyromegaly. No submental, submandibular, pre- /postauricular, occipital or supraclavicular lymphadenopathy. CHEST: Normal chest expansion. No Telemetry. LUNGS: Absence of any rales, rhonchi or any wheezing. CARDIOVASCULAR: Regular. S1 and S2 normal. No appreciable rubs, murmurs or gallops. ABDOMEN: Soft, nontender, and nondistended. There is no rebound, voluntary guarding, or rigidity. : Deferred. No Yip. EXTREMITIES: Non-edematous and not cyanotic. No clubbing. Good capillary refill. SKIN: No skin breakdown. Vital Signs (last 8hr) Date Time Temp Pulse Resp B/P (MAP) Pulse Ox O2 Delivery O2 Flow Rate FiO2 08/02/24 10:30 98.4 67 18 132/63 97 Room Air 08/02/24 10:00 18 114/63 97 Room Air 08/02/24 09:45 70 18 126/64 97 Room Air 08/02/24 09:30 67 18 123/72 97 Room Air 08/02/24 09:15 67 18 132/71 97 Room Air 08/02/24 09:00 98.2 69 18 111/67 97 Room Air 08/02/24 08:47 97.5 68 19 105/60 96 Room Air 08/02/24 08:42 66 18 108/59 95 Room Air 08/02/24 08:37 64 21 107/60 94 Room Air 08/02/24 08:32 74 15 105/56 95 Room Air 08/02/24 08:27 63 21 100/57 96 Room Air 08/02/24 08:22 62 17 106/54 100 SIMPLE FACE MASK 10.0 08/02/24 08:17 97.3 64 19 107/57 100 SIMPLE FACE MASK 10.0 08/02/24 08:00 Mask 08/02/24 08:00 Mask 10.0 LABS: Laboratory: Test 08/02/24 08:28 08/02/24 05:58 08/01/24 22:45 08/01/24 11:37 Range/Units Whole Blood Glucose 80 70-110 MG/DL White Blood Count 5.6 4.8-10.8 K/uL Red Blood Count 4.07 4.00-5.50 MIL/uL Hemoglobin 12.7 12.0-16.0 g/dL Hematocrit 38.6 36-48 % Mean Corpuscular Volume 94.8 79-99 fL Mean Corpuscular Hemoglobin 31.2 27.0-33.0 pg Mean Corpuscular Hemoglobin Concent 32.9 32.0-36.0 g/dL Red Cell Distribution Width 12.3 11.0-15.5 % Platelet Count 180 130-400 K/uL Mean Platelet Volume 9.3 7.5-10.5 fL Immature Granulocyte % (Auto) 0.4 0-1 % Neutrophils (%) (Auto) 69.8 40.0-77.0 % Lymphocytes (%) (Auto) 18.2 L 21.0-51.0 % Monocytes (%) (Auto) 9.5 3.0-13.0 % Eosinophils (%) (Auto) 1.6 0.0-8.0 % Basophils (%) (Auto) 0.5 0.0-5.0 % Neutrophils # (Auto) 3.9 1.8-7.7 K/uL Lymphocytes # (Auto) 1.0 1.0-4.8 K/uL Monocytes # (Auto) 0.5 0.1-1.0 K/uL Eosinophils # (Auto) 0.09 0.00-0.70 K/uL Basophils # (Auto) 0.03 0.00-0.20 K/uL Absolute Immature Granulocyte (auto 0.02 0-1 K/uL Nucleated Red Blood Cells 0.0 0.0-0.19 % Sodium Level 143 136-145 mmol/L Potassium Level 4.1 3.5-5.1 mmol/L Chloride Level 109 101-111 mmol/L Carbon Dioxide Level 26 21-32 mmol/L Blood Urea Nitrogen 9 7-18 mg/dL Creatinine 0.6 0.5-1.0 mg/dL Glomerular Filtration Rate Calc 91 >90 mL/min Random Glucose 84 70-105 mg/dL Total Calcium 8.0 L 8.5-10.1 mg/dL Magnesium Level 2.30 1.80-2.40 mg/dL Total Bilirubin 0.8 0.2-1.0 mg/dL Aspartate Amino Transf (AST/SGOT) 46 H 10-37 U/L Alanine Aminotransferase (ALT/SGPT) 47 12-78 U/L Alkaline Phosphatase 129 # 50-136 U/L Total Protein 6.2 6.0-8.3 g/dL Albumin 3.2 L 3.5-5.0 g/dL Stool Lactoferrin (BUDDY) NEGATIVE NEGATIVE Prothrombin Time 11.4 9.6-11.6 SEC Prothromb Time International Ratio 1.06 0.85-1.15 Activated Partial Thromboplast Time 27.8 26.3-35.5 SEC Direct Bilirubin 0.1 0.0-0.3 mg/dL C-Reactive Protein, Quantitative 26.30 H 0.5-3.0 mg/L Lipase 21 16-77 U/L Test 08/01/24 11:30 Range/Units Urine Color YELLOW YELLOW Urine Appearance CLOUDY H CLEAR Urine pH 5.5 5.0-8.0 Urine Specific [place]cox 1.023 1.001-1.031 Urine Protein 70 H NEGATIVE mg/dL Urine Glucose (UA) NEGATIVE NEGATIVE mg/dL Urine Ketones NEGATIVE NEGATIVE mg/dL Urine Occult Blood LARGE H NEGATIVE Urine Nitrate NEGATIVE NEGATIVE Urine Bilirubin NEGATIVE NEGATIVE mg/dL Urine Urobilinogen 0.2 0.2-1.0 mg/dL Urine Leukocyte Esterase 500 H NEGATIVE Yousif/uL Urine RBC 26-50 H 0-1 /HPF Urine WBC TNTC H 0-1 /HPF Urine Squamous Epithelial Cells RARE 0-2 /HPF Urine Bacteria FEW None Seen /HPF Urine Hyaline Casts 2-5 H 0-1 /LPF /LPF Current Medications Medications (Trade) Dose Ordered Sig/Edison Route PRN Reason Start Time Stop Time Status Last Admin Dose Admin Atorvastatin Calcium (LIPItor 40MG) 40 mg HS PO 08/01/24 21:00 08/31/24 20:59 08/01/24 20:36 40 MG Baclofen (Baclofen) 5 mg DAILY PO 08/02/24 09:00 09/01/24 08:59 08/02/24 09:03 5 MG Ceftriaxone Sodium (ROCEphine 1G INJ) 1 gm DAILY IVPB 08/02/24 14:00 08/09/24 14:00 Famotidine (Pepcid 20mg Vial) 20 mg BID IV 08/01/24 21:00 08/31/24 20:59 08/02/24 09:03 20 MG Fluticasone Propionate (FLOnase 50 mcg/ spray 16g bottle) 1 SPRAY PER NARE DAILY PRN NS allergies 08/01/24 18:30 08/31/24 18:29 Magnesium Sulfate 50 ml @ 0 mls/hr PROTOCOL IV 08/01/24 15:30 08/01/24 20:33 DC Magnesium Sulfate 50 ml @ 0 mls/hr PROTOCOL IV 08/01/24 20:30 08/31/24 20:29 08/01/24 23:45 25 MLS/HR Metoprolol Succinate (TopROL XL) 50 mg Q24H PO 08/01/24 17:00 08/31/24 16:59 08/01/24 17:40 50 MG Montelukast Sodium (SinguLAIR) 10 mg HS PO 08/01/24 21:00 08/31/24 20:59 08/01/24 20:36 10 MG Ondansetron HCl (zoFRAN 4MG INJ) 4 mg Q6H PRN IVP NAUSEA/VOMITING 08/01/24 15:30 08/31/24 15:29 Polyethylene Glycol/ Electrolytes (Golytely/Colyte Soln) 4,000 ml ONCE PO 08/01/24 15:43 08/01/24 23:59 DC 08/01/24 17:40 4,000 ML Potassium Chloride 100 ml @ 100 mls/hr AD PRN IV POTASSIUM PROTOCOL 08/01/24 15:30 08/31/24 15:29 Potassium Chloride (K-Dur/Klor-Con 20meq) 20 meq AD PRN PO POTASSIUM PROTOCOL 08/01/24 15:30 1/12/25 15:29 08/01/24 20:36 20 MEQ Potassium Chloride (KCl 10% Elixir 20meq/15ml) 20 meq AD PRN PO POTASSIUM PROTOCOL 08/01/24 15:30 08/31/24 15:29 Sodium Chloride 1,000 ml @ 100 mls/hr Q10H IV 08/01/24 15:30 08/31/24 15:29 08/02/24 10:45 100 MLS/HR DIAGNOSTICS / RADIOLOGY: [ ] ASSESSMENT: Persistent nonresolving d Diarrhea with no improvement of outpatient treatment, POA Dehydration, POA Hypokalemia, POA Hypomagnesemia, POA Gastroenteritis, POA Urinary tract infection, gram negative rods, POA History of multiple antibiotic allergies including penicillin, sulfa, levofloxacin, POA Underlying history of SVT, POA Hyperlipidemia, POA History of gait instability with fall (ongoing for several years), POA Frailty/debility, POA Octogenarian, POA PLAN: Admit to medical-surgical floor under telemetry monitoring IV hydration with NS at 100 mL/hour Continue IV Rocephin daily for management of UTI Stool studies including GI PCR panel, C diff panel, stool culture, stool ova parasite, fecal calprotectin pending will follow up GI consulted, appreciate recommendations Colonoscopy pending will follow up Continue with metoprolol succinate 50 mg daily for management of SVT Disposition: pending improvement in clinical status, colonoscopy, GI recommendations PRITESH BLANCHARD MD Aug 02, 2024 13:24
--- NOTE | 2024-08-02 14:26 | NUR ---
INITIAL ASSESSMENT Patient lives alone. 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 Patient has no home services. DME: rollator & shower chair. She is able to complete ADLs independently but does not drive. Her friend, Kelton Castillo, helps with transportation. PCP is Dr. Dali Ortiz. Pharmacy is [facility] in [place]. Patient has no issues with having stable chcf to live in or transportation. She has lived in her home for some time. No concerns voiced regarding not having enough food in the home. No safety concerns voiced regarding returning home. DCP is home. Addendum: 08/02/24 at 1428 by CIPRIANO PAINTER Amended: Links added.
[2024-08-03] VITALS (7 sets, daily range): BP systolic 109–150; BP diastolic 50–78; PULSE 57–70; RESP 16–18; TEMP 97.7–98.2; O2SAT 97–98
--- NOTE | 2024-08-03 01:21 | CONS ---
INFECTIOUS DISEASE CONSULTATION DATE OF SERVICE: 08/02/2024 REQUESTING PHYSICIAN: Dreeck Decker MD REASON FOR CONSULTATION: UTI and diarrhea. HISTORY OF PRESENT ILLNESS: An 79-year-old female with history of hypertension, SBP, UTI, presented to the hospital with diarrhea. The patient claims diarrhea has been going on for about 3 months. Stool is watery, nonbloody. Also complained of dysuria, but no urinary frequency. Denies fever or chills. No weight loss, no night sweats. No bleeding tendency. No rashes or itchiness. Denies depression. No suicidal ideation. The patient underwent colonoscopy today, which shows diverticulosis. Denied neck pain or neck swelling. PAST MEDICAL HISTORY: * Hypertension. * SBP. * Dyslipidemia. * Osteoporosis. * UTI. * Incontinence. PAST SURGICAL HISTORY: Denies. ALLERGIES: * PENICILLIN. * SULFA. * LEVOFLOXACIN. CURRENT MEDICATIONS: Reviewed. SOCIAL HISTORY: Lives with her . No alcohol, tobacco or illicit drug use. FAMILY HISTORY: Noncontributory. REVIEW OF SYSTEMS: Greater than 10 systems were reviewed, negative except as documented above. PHYSICAL EXAMINATION: GENERAL: Elderly female, awake. VITAL SIGNS: Temperature 98.5, pulse 62, respiratory rate 18. EYES: No icterus. Pupils equal and reactive. HENT: No oral thrush seen. Moist oral mucosa. NECK: Supple. No JVD or thyromegaly. LUNGS: Good air entry. No rales, no rhonchi. CARDIOVASCULAR: S1, S2 regular. No murmur heard. ABDOMEN: Full, soft, nontender. Bowel sounds present. CENTRAL NERVOUS SYSTEM: Awake, alert, oriented x 3. No focal deficits. SKIN: No rashes, no itchiness. LYMPHATIC: No peripheral lymphadenopathy. BACK: No deformity, no pressure ulcer. MUSCULOSKELETAL: No joint swelling, erythema, or tenderness. LABORATORY DATA: Sodium 143, potassium 4.1, BUN 9, creatinine 0.6. WBC 5.0, hemoglobin 12.0, platelet count 118. Urine culture growing Gram-negative jesse. RADIOLOGY: CT of the abdomen shows fluid-filled colon. ASSESSMENT: An 79-year-old female presenting with diarrhea. CURRENT PROBLEMS: Include: * Urinary tract infection. * Noninfectious gastroenteritis. * Hypertension. * Obesity. PLAN: * Continue ceftriaxone. * Follow up cultures. * Continue pain management. * Continue antiemetic. * Continue nutritional support. * Monitor electrolytes. * Continue DVT prophylaxis. Thank you for allowing me to participate in the care of this patient. TID: [id number] RECEIPT: [id number]
[2024-08-03 05:26] LABS: BASOPHILS # (AUTO) 0.03 K/uL (0.00-0.20); BASOPHILS % (AUTO) 0.6 % (0.0-5.0); EOSINOPHILS # (AUTO) 0.11 K/uL (0.00-0.70); EOSINOPHILS % (AUTO) 2.1 % (0.0-8.0); HEMATOCRIT 34.5 % (36-48); IMMATURE GRANULOCYTE ABSOLUTE 0.03 K/uL (0-1); LYMPHOCYTES # (AUTO) 1.8 K/uL (1.0-4.8); LYMPHOCYTES % (AUTO) 35.7 % (21.0-51.0); MEAN CORPUSCULAR HEMOGLOBIN 31.4 pg (27.0-33.0); MEAN CORPUSCULAR HGB CONC 32.8 g/dL (32.0-36.0); MEAN CORPUSCULAR VOLUME 95.8 fL (79-99); MONOCYTES # (AUTO) 0.4 K/uL (0.1-1.0); MONOCYTES % (AUTO) 8.6 % (3.0-13.0); NEUTROPHILS # (AUTO) 2.7 K/uL (1.8-7.7); NEUTROPHILS % (AUTO) 52.4 % (40.0-77.0); PLATELET COUNT (AUTO) 162 K/uL (130-400); RED CELL DISTRIBUTION WIDTH 12.3 % (11.0-15.5); WHITE BLOOD COUNT (AUTO) 5.1 K/uL (4.8-10.8)
[2024-08-03 05:39] LABS: CREATININE 0.6 mg/dL (0.5-1.0); MAGNESIUM 1.9 mg/dL (1.80-2.40); POTASSIUM 3.5 mmol/L (3.5-5.1)
--- NOTE | 2024-08-03 12:18 | PN ---
[facility] PROGRESS NOTE Date of Service: Aug 03, 2024 Time of Service: : SUBJECTIVE: 08/02 patient seen at bedside, no acute events overnight. She is pending colonoscopy today we will follow up postprocedure. She has been afebrile, hemodynamically stable saturating well on room air. Labs are unremarkable. No bowel movements recorded since admission. Will cancel ID consult as patient does not yet meet criteria for this consult. Urine growing gram negative rods, will continue with ceftriaxone 08/03 patient seen at bedside, no acute events overnight. Urine is positive for ESBL, infectious Disease has been reconsulted as this is an indication for an ID consult. Ceftriaxone has been discontinued and she will be started on meropenem. Vitals and labs are relatively unremarkable. Colonoscopy with no major abnormalities, will follow up with further recommendations from GI REVIEW OF SYSTEMS 12 point review of systems negative unless noted in HPI PHYSICAL EXAM GENERAL APPEARANCE: The patient is awake, alert, and oriented, appears dehydrated NEUROLOGICAL: Cranial nerves II-XII grossly intact. Motor is 5/5 in bilateral upper and lower extremities proximal to distal. No sensory deficits. HEENT: Face is symmetric. Pupils are equal and reactive. Extraocular movements are intact. NECK: Supple. No JVD. No thyromegaly. No submental, submandibular, pre- /postauricular, occipital or supraclavicular lymphadenopathy. CHEST: Normal chest expansion. No Telemetry. LUNGS: Absence of any rales, rhonchi or any wheezing. CARDIOVASCULAR: Regular. S1 and S2 normal. No appreciable rubs, murmurs or gallops. ABDOMEN: Soft, nontender, and nondistended. There is no rebound, voluntary guarding, or rigidity. : Deferred. No Yip. EXTREMITIES: Non-edematous and not cyanotic. No clubbing. Good capillary refill. SKIN: No skin breakdown. Vital Signs (last 8hr) Date Time Temp Pulse Resp B/P (MAP) Pulse Ox O2 Delivery O2 Flow Rate FiO2 08/03/24 11:53 98.1 61 18 121/76 97 Room Air 08/03/24 08:43 97 Room Air* 0 21 08/03/24 08:07 98.1 62 18 123/67 97 Room Air LABS: Laboratory: Test 08/03/24 05:07 08/02/24 08:28 08/02/24 05:58 08/01/24 22:45 Range/Units White Blood Count 5.1 4.8-10.8 K/uL Red Blood Count 3.60 L 4.00-5.50 MIL/uL Hemoglobin 11.3 L 12.0-16.0 g/dL Hematocrit 34.5 L 36-48 % Mean Corpuscular Volume 95.8 79-99 fL Mean Corpuscular Hemoglobin 31.4 27.0-33.0 pg Mean Corpuscular Hemoglobin Concent 32.8 32.0-36.0 g/dL Red Cell Distribution Width 12.3 11.0-15.5 % Platelet Count 162 130-400 K/uL Mean Platelet Volume 10.3 7.5-10.5 fL Immature Granulocyte % (Auto) 0.6 0-1 % Neutrophils (%) (Auto) 52.4 40.0-77.0 % Lymphocytes (%) (Auto) 35.7 21.0-51.0 % Monocytes (%) (Auto) 8.6 3.0-13.0 % Eosinophils (%) (Auto) 2.1 0.0-8.0 % Basophils (%) (Auto) 0.6 0.0-5.0 % Neutrophils # (Auto) 2.7 1.8-7.7 K/uL Lymphocytes # (Auto) 1.8 1.0-4.8 K/uL Monocytes # (Auto) 0.4 0.1-1.0 K/uL Eosinophils # (Auto) 0.11 0.00-0.70 K/uL Basophils # (Auto) 0.03 0.00-0.20 K/uL Absolute Immature Granulocyte (auto 0.03 0-1 K/uL Nucleated Red Blood Cells 0.0 0.0-0.19 % Sodium Level 142 136-145 mmol/L Potassium Level 3.5 3.5-5.1 mmol/L Chloride Level 111 101-111 mmol/L Carbon Dioxide Level 24 21-32 mmol/L Blood Urea Nitrogen 11 7-18 mg/dL Creatinine 0.6 0.5-1.0 mg/dL Glomerular Filtration Rate Calc 91 >90 mL/min Random Glucose 102 70-105 mg/dL Total Calcium 7.8 L 8.5-10.1 mg/dL Phosphorus Level 3.0 2.5-4.9 mg/dL Magnesium Level 1.90 1.80-2.40 mg/dL Whole Blood Glucose 80 70-110 MG/DL Total Bilirubin 0.8 0.2-1.0 mg/dL Aspartate Amino Transf (AST/SGOT) 46 H 10-37 U/L Alanine Aminotransferase (ALT/SGPT) 47 12-78 U/L Alkaline Phosphatase 129 # 50-136 U/L Total Protein 6.2 6.0-8.3 g/dL Albumin 3.2 L 3.5-5.0 g/dL Stool Lactoferrin (BUDDY) NEGATIVE NEGATIVE Current Medications Medications (Trade) Dose Ordered Sig/Edison Route PRN Reason Start Time Stop Time Status Last Admin Dose Admin Atorvastatin Calcium (LIPItor 40MG) 40 mg HS PO 08/01/24 21:00 08/31/24 20:59 08/02/24 20:08 40 MG Baclofen (Baclofen) 5 mg DAILY PO 08/02/24 09:00 09/01/24 08:59 08/03/24 08:43 5 MG Ceftriaxone Sodium (ROCEphine 1G INJ) 1 gm DAILY IVPB 08/02/24 14:00 08/03/24 12:12 DC 08/03/24 08:43 1 GM Famotidine (Pepcid 20mg Vial) 20 mg BID IV 08/01/24 21:00 08/31/24 20:59 08/03/24 08:43 20 MG Fluticasone Propionate (FLOnase 50 mcg/ spray 16g bottle) 1 SPRAY PER NARE DAILY PRN NS allergies 08/01/24 18:30 08/31/24 18:29 Magnesium Sulfate 50 ml @ 0 mls/hr PROTOCOL IV 08/01/24 15:30 08/01/24 20:33 DC Magnesium Sulfate 50 ml @ 0 mls/hr PROTOCOL IV 08/01/24 20:30 08/31/24 20:29 08/01/24 23:45 25 MLS/HR Meropenem 1 gm/ Sodium Chloride 100 ml @ 33.333 mls/ hr Q8H IVPB 08/03/24 12:30 08/13/24 12:29 UNV Metoprolol Succinate (TopROL XL) 50 mg Q24H PO 08/01/24 17:00 08/31/24 16:59 08/02/24 17:14 50 MG Montelukast Sodium (SinguLAIR) 10 mg HS PO 08/01/24 21:00 08/31/24 20:59 08/02/24 20:08 10 MG Ondansetron HCl (zoFRAN 4MG INJ) 4 mg Q6H PRN IVP NAUSEA/VOMITING 08/01/24 15:30 08/31/24 15:29 Polyethylene Glycol/ Electrolytes (Golytely/Colyte Soln) 4,000 ml ONCE PO 08/01/24 15:43 08/01/24 23:59 DC 08/01/24 17:40 4,000 ML Potassium Chloride 100 ml @ 100 mls/hr AD PRN IV POTASSIUM PROTOCOL 08/01/24 15:30 08/31/24 15:29 Potassium Chloride (K-Dur/Klor-Con 20meq) 20 meq AD PRN PO POTASSIUM PROTOCOL 08/01/24 15:30 08/31/24 15:29 08/03/24 08:43 20 MEQ Potassium Chloride (KCl 10% Elixir 20meq/15ml) 20 meq AD PRN PO POTASSIUM PROTOCOL 08/01/24 15:30 08/31/24 15:29 Sodium Chloride 1,000 ml @ 100 mls/hr Q10H IV 08/01/24 15:30 08/31/24 15:29 08/03/24 06:39 100 MLS/HR DIAGNOSTICS / RADIOLOGY: [ ] ASSESSMENT: Persistent nonresolving d Diarrhea with no improvement of outpatient treatment, POA Dehydration, POA Hypokalemia, POA Hypomagnesemia, POA Gastroenteritis, POA Urinary tract infection, ESBL E. Coli, POA History of multiple antibiotic allergies including penicillin, sulfa, levofloxacin, POA Underlying history of SVT, POA Hyperlipidemia, POA History of gait instability with fall (ongoing for several years), POA Frailty/debility, POA Octogenarian, POA PLAN: Admit to medical-surgical floor under telemetry monitoring IV hydration with NS at 100 mL/hour Discontinue IV Rocephin Start meropenem Stool studies including GI PCR panel, C diff panel, stool culture, stool ova parasite, fecal calprotectin pending will follow up GI consulted, appreciate recommendations Colonoscopy relatively normal Continue with metoprolol succinate 50 mg daily for management of SVT ID consulted, appreciate recommendations Disposition: pending improvement in clinical status, colonoscopy, GI recommendations PRITESH BLANCHARD MD Aug 03, 2024 12:18
[2024-08-03] MEDS ORDERED: MEROPENEM 1 GM in 0.9%NACL 100ML 100 ML IVPB SCH (12:30)
[2024-08-03] MEDS: MEROPENEM 1 GM VIAL IVPB SCH (12:44)
[2024-08-03] MEDS: acetaMINOPHEN 325 MG TAB PO PRN (17:19)
[2024-08-04] VITALS (7 sets, daily range): BP systolic 113–159; BP diastolic 63–90; PULSE 55–64; RESP 17–18; TEMP 98.1–98.7; O2SAT 98–99
[2024-08-04 04:56] LABS: BASOPHILS # (AUTO) 0.04 K/uL (0.00-0.20); BASOPHILS % (AUTO) 0.8 % (0.0-5.0); EOSINOPHILS % (AUTO) 2.1 % (0.0-8.0); HEMATOCRIT 35.5 % (36-48); IMMATURE GRANULOCYTE ABSOLUTE 0.03 K/uL (0-1); LYMPHOCYTES % (AUTO) 41.9 % (21.0-51.0); MEAN CORPUSCULAR HEMOGLOBIN 30.7 pg (27.0-33.0); MEAN CORPUSCULAR HGB CONC 32.4 g/dL (32.0-36.0); MEAN CORPUSCULAR VOLUME 94.7 fL (79-99); MONOCYTES # (AUTO) 0.3 K/uL (0.1-1.0); MONOCYTES % (AUTO) 6.6 % (3.0-13.0); NEUTROPHILS # (AUTO) 2.3 K/uL (1.8-7.7); PLATELET COUNT (AUTO) 184 K/uL (130-400); RED BLOOD CELL COUNT(AUTO) 3.75 MIL/uL (4.00-5.50); RED CELL DISTRIBUTION WIDTH 12.1 % (11.0-15.5); WHITE BLOOD COUNT (AUTO) 4.8 K/uL (4.8-10.8)
[2024-08-04 05:01] LABS: CREATININE 0.7 mg/dL (0.5-1.0); POTASSIUM 3.6 mmol/L (3.5-5.1)
--- NOTE | 2024-08-04 08:15 | PN ---
[facility] PROGRESS NOTE Date of Service: Aug 04, 2024 Time of Service: 08:15 SUBJECTIVE: 08/02 patient seen at bedside, no acute events overnight. She is pending colonoscopy today we will follow up postprocedure. She has been afebrile, hemodynamically stable saturating well on room air. Labs are unremarkable. No bowel movements recorded since admission. Will cancel ID consult as patient does not yet meet criteria for this consult. Urine growing gram negative rods, will continue with ceftriaxone 08/03 patient seen at bedside, no acute events overnight. Urine is positive for ESBL, infectious Disease has been reconsulted as this is an indication for an ID consult. Ceftriaxone has been discontinued and she will be started on meropenem. Vitals and labs are relatively unremarkable. Colonoscopy with no major abnormalities, will follow up with further recommendations from GI 08/04 the patient has been seen and examined this morning during my rounding, no acute events overnight, during my visit she is comfortably in bed, alert oriented x3, hemodynamically stable, tolerating diet, no nausea, no vomiting, no abdominal discomfort, no diarrhea, no constipation. Results of urine culture showing E coli ESBL, discussed with the patient. REVIEW OF SYSTEMS 12 point review of systems negative unless noted in HPI PHYSICAL EXAM GENERAL APPEARANCE: The patient is awake, alert, and oriented, appears dehydrated NEUROLOGICAL: Cranial nerves II-XII grossly intact. Motor is 5/5 in bilateral upper and lower extremities proximal to distal. No sensory deficits. HEENT: Face is symmetric. Pupils are equal and reactive. Extraocular movements are intact. NECK: Supple. No JVD. No thyromegaly. No submental, submandibular, pre-/postauricular, occipital or supraclavicular lymphadenopathy. CHEST: Normal chest expansion. No Telemetry. LUNGS: Absence of any rales, rhonchi or any wheezing. CARDIOVASCULAR: Regular. S1 and S2 normal. No appreciable rubs, murmurs or gallops. ABDOMEN: Soft, nontender, and nondistended. There is no rebound, voluntary guarding, or rigidity. : Deferred. No Yip. EXTREMITIES: Non-edematous and not cyanotic. No clubbing. Good capillary refill. SKIN: No skin breakdown. Vital Signs (last 8hr) Date Time Temp Pulse Resp B/P (MAP) Pulse Ox O2 Delivery O2 Flow Rate FiO2 08/04/24 08:00 98.1 63 17 159/63 96 Room Air 0.0 08/04/24 04:00 98.8 59 17 142/73 95 Room Air LABS: Laboratory: Test 08/04/24 04:16 08/03/24 05:07 08/02/24 08:28 Range/Units White Blood Count 4.8 4.8-10.8 K/uL Red Blood Count 3.75 L 4.00-5.50 MIL/uL Hemoglobin 11.5 L 12.0-16.0 g/dL Hematocrit 35.5 L 36-48 % Mean Corpuscular Volume 94.7 79-99 fL Mean Corpuscular Hemoglobin 30.7 27.0-33.0 pg Mean Corpuscular Hemoglobin Concent 32.4 32.0-36.0 g/dL Red Cell Distribution Width 12.1 11.0-15.5 % Platelet Count 184 130-400 K/uL Mean Platelet Volume 10.4 7.5-10.5 fL Immature Granulocyte % (Auto) 0.6 0-1 % Neutrophils (%) (Auto) 48.0 40.0-77.0 % Lymphocytes (%) (Auto) 41.9 21.0-51.0 % Monocytes (%) (Auto) 6.6 3.0-13.0 % Eosinophils (%) (Auto) 2.1 0.0-8.0 % Basophils (%) (Auto) 0.8 0.0-5.0 % Neutrophils # (Auto) 2.3 1.8-7.7 K/uL Lymphocytes # (Auto) 2.0 1.0-4.8 K/uL Monocytes # (Auto) 0.3 0.1-1.0 K/uL Eosinophils # (Auto) 0.10 0.00-0.70 K/uL Basophils # (Auto) 0.04 0.00-0.20 K/uL Absolute Immature Granulocyte (auto 0.03 0-1 K/uL Nucleated Red Blood Cells 0.0 0.0-0.19 % Sodium Level 144 136-145 mmol/L Potassium Level 3.6 3.5-5.1 mmol/L Chloride Level 111 101-111 mmol/L Carbon Dioxide Level 26 21-32 mmol/L Blood Urea Nitrogen 14 7-18 mg/dL Creatinine 0.7 0.5-1.0 mg/dL Glomerular Filtration Rate Calc 87 >90 mL/min Random Glucose 101 70-105 mg/dL Total Calcium 8.1 L 8.5-10.1 mg/dL Phosphorus Level 3.0 2.5-4.9 mg/dL Magnesium Level 1.90 1.80-2.40 mg/dL Whole Blood Glucose 80 70-110 MG/DL Current Medications Medications (Trade) Dose Ordered Sig/Edison Route PRN Reason Start Time Stop Time Status Last Admin Dose Admin Acetaminophen (TYLenol 325MG TAB) 650 mg Q6H PRN PO MILD PAIN (1-3) 08/03/24 17:30 09/02/24 17:29 08/04/24 06:38 650 MG Atorvastatin Calcium (LIPItor 40MG) 40 mg HS PO 08/01/24 21:00 08/31/24 20:59 08/03/24 20:22 40 MG Baclofen (Baclofen) 5 mg DAILY PO 08/02/24 09:00 09/01/24 08:59 08/03/24 08:43 5 MG Ceftriaxone Sodium (ROCEphine 1G INJ) 1 gm DAILY IVPB 08/02/24 14:00 08/03/24 12:12 DC 08/03/24 08:43 1 GM Famotidine (Pepcid 20mg Vial) 20 mg BID IV 08/01/24 21:00 08/31/24 20:59 08/03/24 20:22 20 MG Fluticasone Propionate (FLOnase 50 mcg/ spray 16g bottle) 1 SPRAY PER NARE DAILY PRN NS allergies 08/01/24 18:30 08/31/24 18:29 Magnesium Sulfate 50 ml @ 0 mls/hr PROTOCOL IV 08/01/24 15:30 08/01/24 20:33 DC Magnesium Sulfate 50 ml @ 0 mls/hr PROTOCOL IV 08/01/24 20:30 08/31/24 20:29 08/01/24 23:45 25 MLS/HR Meropenem (Merrem) 1 gm Q8H IVPB 08/03/24 12:30 08/13/24 12:29 08/04/24 04:15 1 GM Meropenem 1 gm/ Sodium Chloride 100 ml @ 33.333 mls/ hr Q8H IVPB 08/03/24 12:30 08/03/24 12:16 DC Metoprolol Succinate (TopROL XL) 50 mg Q24H PO 08/01/24 17:00 08/31/24 16:59 08/03/24 17:18 50 MG Montelukast Sodium (SinguLAIR) 10 mg HS PO 08/01/24 21:00 08/31/24 20:59 08/03/24 20:22 10 MG Ondansetron HCl (zoFRAN 4MG INJ) 4 mg Q6H PRN IVP NAUSEA/VOMITING 08/01/24 15:30 08/31/24 15:29 Polyethylene Glycol/ Electrolytes (Golytely/Colyte Soln) 4,000 ml ONCE PO 08/01/24 15:43 08/01/24 23:59 DC 08/01/24 17:40 4,000 ML Potassium Chloride 100 ml @ 100 mls/hr AD PRN IV POTASSIUM PROTOCOL 08/01/24 15:30 08/31/24 15:29 Potassium Chloride (K-Dur/Klor-Con 20meq) 20 meq AD PRN PO POTASSIUM PROTOCOL 08/01/24 15:30 08/31/24 15:29 08/04/24 05:45 20 MEQ Potassium Chloride (KCl 10% Elixir 20meq/15ml) 20 meq AD PRN PO POTASSIUM PROTOCOL 08/01/24 15:30 08/31/24 15:29 Sodium Chloride 1,000 ml @ 100 mls/hr Q10H IV 08/01/24 15:30 08/31/24 15:29 08/04/24 00:49 100 MLS/HR DIAGNOSTICS / RADIOLOGY: [ ] ASSESSMENT: Persistent nonresolving d Diarrhea with no improvement of outpatient treatment, POA Dehydration, POA Hypokalemia, POA Hypomagnesemia, POA Gastroenteritis, POA Urinary tract infection, ESBL E. Coli, POA History of multiple antibiotic allergies including penicillin, sulfa, levofloxacin, POA Underlying history of SVT, POA Hyperlipidemia, POA History of gait instability with fall (ongoing for several years), POA Frailty/debility, POA Octogenarian, POA PLAN: Admit to medical-surgical floor under telemetry monitoring IV hydration with NS at 100 mL/hour Continue meropenem Stool studies including GI PCR panel, C diff panel, stool culture, stool ova parasite, fecal calprotectin pending will follow up GI consulted, appreciate recommendations Colonoscopy relatively normal Continue with metoprolol succinate 50 mg daily for management of SVT ID consulted, appreciate recommendations Disposition: pending improvement in clinical status, possible home today pending further ID recommendations. HARRISON DACOSTA MD Aug 04, 2024 08:15
[2024-08-04] MEDS ORDERED: MONT-46 PO (09:27)
--- NOTE | 2024-08-04 13:20 | PN ---
INFECTIOUS DISEASE PROGRESS NOTE Date of Service: Aug 04, 2024 SUBJECTIVE: This is an 79-year-old female patient who was seen examined at bedside in room 306. Patient is awake, alert and oriented x3. Patient is afebrile, temperature 98.4. The final urine culture results came back positive for ESBL E coli. Patient has been started on Meropenem. Patient will need IV antibiotics for 10 days. Patient has been referred to [facility] and pending insurance authorization. We will continue to follow patient's care. PHYSICAL EXAM EYES: Anicteric. Pupils equal and reactive. HENT: No oral thrush seen, moist Oral mucosa NECK: Supple, no JVD or thyromegaly. LUNGS: Good air entry. No rales, no rhonchi. CARDIOVASCULAR: S1, S2 regular. No murmur heard. ABDOMEN: Soft, non tender, bowel sounds present, no organomegaly CENTRAL NERVOUS SYSTEM: Awake, alert, oriented x 3. No focal deficits. SKIN: No rashes, no swelling. LYMPHATICS: No peripheral lymphadenopathy MUSCULOSKELETAL: No joint swelling, erythema or tenderness. EXTREMITIES: No cyanosis or clubbing BACK: No deformity, no pressure ulcer. GENITOURINARY: No dysuria or hematuria Vital Sign (Last 12 Hours) 08/04/24 08/04/24 08/04/24 08/04/24 04:00 08:00 08:00 12:00 Temp 98.8 98.1 98.4 Pulse 59 63 64 Resp 17 17 17 B/P (MAP) 142/73 159/63 138/90 Pulse Ox 95 98 96 96 O2 Delivery Room Air Room Air* Room Air Room Air O2 Flow Rate 0 0.0 0.0 FiO2 21 Intake & Output (last 24hrs) 08/03/24 08/03/24 08/04/24 15:00 23:00 07:00 Intake Total 400 ml 150 ml Balance 400 ml 150 ml LABS: Laboratory: Test 08/04/24 04:16 08/03/24 05:07 Range/Units White Blood Count 4.8 4.8-10.8 K/uL Red Blood Count 3.75 L 4.00-5.50 MIL/uL Hemoglobin 11.5 L 12.0-16.0 g/dL Hematocrit 35.5 L 36-48 % Mean Corpuscular Volume 94.7 79-99 fL Mean Corpuscular Hemoglobin 30.7 27.0-33.0 pg Mean Corpuscular Hemoglobin Concent 32.4 32.0-36.0 g/dL Red Cell Distribution Width 12.1 11.0-15.5 % Platelet Count 184 130-400 K/uL Mean Platelet Volume 10.4 7.5-10.5 fL Immature Granulocyte % (Auto) 0.6 0-1 % Neutrophils (%) (Auto) 48.0 40.0-77.0 % Lymphocytes (%) (Auto) 41.9 21.0-51.0 % Monocytes (%) (Auto) 6.6 3.0-13.0 % Eosinophils (%) (Auto) 2.1 0.0-8.0 % Basophils (%) (Auto) 0.8 0.0-5.0 % Neutrophils # (Auto) 2.3 1.8-7.7 K/uL Lymphocytes # (Auto) 2.0 1.0-4.8 K/uL Monocytes # (Auto) 0.3 0.1-1.0 K/uL Eosinophils # (Auto) 0.10 0.00-0.70 K/uL Basophils # (Auto) 0.04 0.00-0.20 K/uL Absolute Immature Granulocyte (auto 0.03 0-1 K/uL Nucleated Red Blood Cells 0.0 0.0-0.19 % Sodium Level 144 136-145 mmol/L Potassium Level 3.6 3.5-5.1 mmol/L Chloride Level 111 101-111 mmol/L Carbon Dioxide Level 26 21-32 mmol/L Blood Urea Nitrogen 14 7-18 mg/dL Creatinine 0.7 0.5-1.0 mg/dL Glomerular Filtration Rate Calc 87 >90 mL/min Random Glucose 101 70-105 mg/dL Total Calcium 8.1 L 8.5-10.1 mg/dL Phosphorus Level 3.0 2.5-4.9 mg/dL Magnesium Level 1.90 1.80-2.40 mg/dL ASSESSMENT: Urinary tract infection with the E coli. Infection with multidrug resistant organism.. Noninfectious gastroenteritis. Hypertension. PLAN: Continue Meropenem IV. Continue GI prophylaxis. Continue pain management. We will monitor electrolytes. Patient has been referred to [facility] and rehab. This case was reviewed and discussed with my supervising physician and the above assessment and plan was formulated and agreed upon. ATTESTATION BY PHYSICIAN I have seen and examined the patient. I reviewed the documentation, medical decision making, and treatment plan as noted by the mid-level provider above. I agree with the findings and plan of care. AKHIL VAZQUEZ MD, [facility] Aug 04, 2024 13:20
--- NOTE | 2024-08-04 13:27 | PN ---
GASTROENTEROLOGY PROGRESS NOTE Date of Visit: Aug 04, 2024 Time of Visit: 13:26 Events / Notes: [ ] Review of Systems: CONSTITUTIONAL: No malaise or change in sensation of wellbeing. ENMT: No rhinorrhea, otorrhea, sinus pain, ear ache. CARDIOVASCULAR: No angina, palpitations, orthopnea or paroxysmal dyspnea. RESPIRATORY: No SOB. GASTROINTESTINAL: No abdominal pain, nausea, vomiting, diarrhea, hematemesis, melena or change in the patient's habitual bowel movements consistency/number. GENITOURINARY: No dysuria, hematuria or change in bladder continence. MUSCULOSKELETAL: No new muscle pain or decrease in muscular strength. No new joint swelling, redness or tenderness. SKIN: No new rash. Physical Exam: GEN: Awake, alert, oriented in person, time and place, and in no acute distress. HEENT: No sinus tenderness. Tympanic membranes were not examined. No rhinorrhea. Oral pharyngeal mucosa is pink, moist and within normal limits. Neck is supple with no cervical lymphadenopathy, thyromegaly or JVD. CHEST: Inspection, palpation and percussion of the chest were unremarkable. Lung auscultation revealed normal breath sounds bilaterally. CARDIAC: PMI is within normal limits. Heart sounds are regular. Normal S1, S2. No gallop or murmur. ABD: Soft, non-tender and not distended. No peritoneal signs on palpation. No organomegaly. Normal bowel sounds. EXT: No cyanosis or clubbing. No edema. SKIN: Intact. No rashes. JOINTS: No evidence of synovitis or acute arthritis. NEURO: Alert and oriented to name, place and person. Cranial nerve examination is unremarkable. No focal motor deficits. Normal speech. Gait is normal. Strength is normal. Vital Signs (last 8hr) Date Time Temp Pulse Resp B/P (MAP) Pulse Ox O2 Delivery O2 Flow Rate FiO2 08/04/24 12:00 98.4 64 17 138/90 96 Room Air 0.0 08/04/24 08:00 98.1 63 17 159/63 96 Room Air 0.0 08/04/24 08:00 98 Room Air* 0 21 Laboratory: [ ] Laboratory: Test 08/04/24 04:16 08/03/24 05:07 Range/Units White Blood Count 4.8 4.8-10.8 K/uL Red Blood Count 3.75 L 4.00-5.50 MIL/uL Hemoglobin 11.5 L 12.0-16.0 g/dL Hematocrit 35.5 L 36-48 % Mean Corpuscular Volume 94.7 79-99 fL Mean Corpuscular Hemoglobin 30.7 27.0-33.0 pg Mean Corpuscular Hemoglobin Concent 32.4 32.0-36.0 g/dL Red Cell Distribution Width 12.1 11.0-15.5 % Platelet Count 184 130-400 K/uL Mean Platelet Volume 10.4 7.5-10.5 fL Immature Granulocyte % (Auto) 0.6 0-1 % Neutrophils (%) (Auto) 48.0 40.0-77.0 % Lymphocytes (%) (Auto) 41.9 21.0-51.0 % Monocytes (%) (Auto) 6.6 3.0-13.0 % Eosinophils (%) (Auto) 2.1 0.0-8.0 % Basophils (%) (Auto) 0.8 0.0-5.0 % Neutrophils # (Auto) 2.3 1.8-7.7 K/uL Lymphocytes # (Auto) 2.0 1.0-4.8 K/uL Monocytes # (Auto) 0.3 0.1-1.0 K/uL Eosinophils # (Auto) 0.10 0.00-0.70 K/uL Basophils # (Auto) 0.04 0.00-0.20 K/uL Absolute Immature Granulocyte (auto 0.03 0-1 K/uL Nucleated Red Blood Cells 0.0 0.0-0.19 % Sodium Level 144 136-145 mmol/L Potassium Level 3.6 3.5-5.1 mmol/L Chloride Level 111 101-111 mmol/L Carbon Dioxide Level 26 21-32 mmol/L Blood Urea Nitrogen 14 7-18 mg/dL Creatinine 0.7 0.5-1.0 mg/dL Glomerular Filtration Rate Calc 87 >90 mL/min Random Glucose 101 70-105 mg/dL Total Calcium 8.1 L 8.5-10.1 mg/dL Phosphorus Level 3.0 2.5-4.9 mg/dL Magnesium Level 1.90 1.80-2.40 mg/dL Current Medications Medications (Trade) Dose Ordered Sig/Edison Route PRN Reason Start Time Stop Time Status Last Admin Dose Admin Acetaminophen (TYLenol 325MG TAB) 650 mg Q6H PRN PO MILD PAIN (1-3) 08/03/24 17:30 09/02/24 17:29 08/04/24 06:38 650 MG Atorvastatin Calcium (LIPItor 40MG) 40 mg HS PO 08/01/24 21:00 08/31/24 20:59 08/03/24 20:22 40 MG Baclofen (Baclofen) 5 mg DAILY PO 08/02/24 09:00 09/01/24 08:59 08/04/24 08:35 5 MG Ceftriaxone Sodium (ROCEphine 1G INJ) 1 gm DAILY IVPB 08/02/24 14:00 08/03/24 12:12 DC 08/03/24 08:43 1 GM Famotidine (Pepcid 20mg Vial) 20 mg BID IV 08/01/24 21:00 08/31/24 20:59 08/04/24 08:34 20 MG Fluticasone Propionate (FLOnase 50 mcg/ spray 16g bottle) 1 SPRAY PER NARE DAILY PRN NS allergies 08/01/24 18:30 08/31/24 18:29 Magnesium Sulfate 50 ml @ 0 mls/hr PROTOCOL IV 08/01/24 15:30 08/01/24 20:33 DC Magnesium Sulfate 50 ml @ 0 mls/hr PROTOCOL IV 08/01/24 20:30 08/31/24 20:29 08/01/24 23:45 25 MLS/HR Meropenem (Merrem) 1 gm Q8H IVPB 08/03/24 12:30 08/13/24 12:29 08/04/24 12:36 1 GM Meropenem 1 gm/ Sodium Chloride 100 ml @ 33.333 mls/ hr Q8H IVPB 08/03/24 12:30 08/03/24 12:16 DC Metoprolol Succinate (TopROL XL) 50 mg Q24H PO 08/01/24 17:00 08/31/24 16:59 08/03/24 17:18 50 MG Montelukast Sodium (SinguLAIR) 10 mg HS PO 08/01/24 21:00 08/31/24 20:59 08/03/24 20:22 10 MG Ondansetron HCl (zoFRAN 4MG INJ) 4 mg Q6H PRN IVP NAUSEA/VOMITING 12/13/24 15:30 08/31/24 15:29 Polyethylene Glycol/ Electrolytes (Golytely/Colyte Soln) 4,000 ml ONCE PO 08/01/24 15:43 08/01/24 23:59 DC 08/01/24 17:40 4,000 ML Potassium Chloride 100 ml @ 100 mls/hr AD PRN IV POTASSIUM PROTOCOL 08/01/24 15:30 08/31/24 15:29 Potassium Chloride (K-Dur/Klor-Con 20meq) 20 meq AD PRN PO POTASSIUM PROTOCOL 08/01/24 15:30 08/31/24 15:29 08/04/24 08:34 20 MEQ Potassium Chloride (KCl 10% Elixir 20meq/15ml) 20 meq AD PRN PO POTASSIUM PROTOCOL 08/01/24 15:30 08/31/24 15:29 Sodium Chloride 1,000 ml @ 100 mls/hr Q10H IV 08/01/24 15:30 08/04/24 09:41 DC 08/04/24 00:49 100 MLS/HR Diagnostics / Radiology: [COPY/PASTE HERE IF NO REPORTS PLEASE DELETE SECTION] Assessment: Diarrhea Plan: Await pathology Continue GI prophylaxis Advance diet as tolerated Avoid NSAIDs Antireflux measures Monitor H&H and transfuse as needed Call with questions, concerns or change in clinical status Patient to follow-up at clinic post discharge Thank you for this consult SANDRA PEREIRAP Aug 04, 2024 13:27
--- NOTE | 2024-08-04 15:21 | NUR ---
Discharge Planning: Referral sent to [facility]. Pending insurance authorization.
[2024-08-05] VITALS: BP 138/69; PULSE 53; RESP 19; TEMP 97.8
[2024-08-05 04:00] VITALS: BP 123/67; PULSE 54; RESP 18; TEMP 97.8
[2024-08-05 05:15] LABS: BASOPHILS # (AUTO) 0.04 K/uL (0.00-0.20); BASOPHILS % (AUTO) 0.6 % (0.0-5.0); EOSINOPHILS # (AUTO) 0.12 K/uL (0.00-0.70); EOSINOPHILS % (AUTO) 1.8 % (0.0-8.0); HEMATOCRIT 36.7 % (36-48); IMMATURE GRANULOCYTE ABSOLUTE 0.03 K/uL (0-1); LYMPHOCYTES # (AUTO) 2.4 K/uL (1.0-4.8); LYMPHOCYTES % (AUTO) 34.9 % (21.0-51.0); MEAN CORPUSCULAR HEMOGLOBIN 31.2 pg (27.0-33.0); MEAN CORPUSCULAR HGB CONC 33.8 g/dL (32.0-36.0); MEAN CORPUSCULAR VOLUME 92.4 fL (79-99); MONOCYTES # (AUTO) 0.4 K/uL (0.1-1.0); MONOCYTES % (AUTO) 6.5 % (3.0-13.0); NEUTROPHILS # (AUTO) 3.8 K/uL (1.8-7.7); NEUTROPHILS % (AUTO) 55.8 % (40.0-77.0); PLATELET COUNT (AUTO) 209 K/uL (130-400); RED BLOOD CELL COUNT(AUTO) 3.97 MIL/uL (4.00-5.50); RED CELL DISTRIBUTION WIDTH 11.9 % (11.0-15.5); WHITE BLOOD COUNT (AUTO) 6.8 K/uL (4.8-10.8)
[2024-08-05 05:35] LABS: ALBUMIN 3.1 g/dL (3.5-5.0); BILIRUBIN,TOTAL 0.8 mg/dL (0.2-1.0); CREATININE 0.8 mg/dL (0.5-1.0); MAGNESIUM 1.7 mg/dL (1.80-2.40); POTASSIUM 3.6 mmol/L (3.5-5.1); TOTAL PROTEIN, SERUM 6.3 g/dL (6.0-8.3)
[2024-08-05 07:18] LABS: EOSINOPHILS % (MANUAL) 3 % (1-6); LYMPHOCYTES % (MANUAL) 41 % (22-44); MAN.DIFF COMMENT-IMPRESSION MANUAL DIFFERENTIAL; MONOCYTES % (MANUAL) 3 % (2-9); SEGMENTED NEUTROPHILS % 53 % (40-70); TOTAL CELLS COUNTED 100
[2024-08-05 07:19] LABS: PLATELET MORPHOLOGY COMMENT ADEQUATE; WBC MORPHOLOGY TOXIC GRANULATION 1+
[2024-08-05 08:00] VITALS: O2SAT 98
[2024-08-05 08:08] VITALS: BP 143/69; PULSE 63; RESP 16; TEMP 98.2
[2024-08-05] MEDS ORDERED: MAGNESIUM 2GM PREMIX 50ML 50 ML IV SCH (09:00)
[2024-08-05] MEDS: PoTASSium chloRIDE 20MEQ ER 20 MEQ ERTAB PO ONE (10:03)
--- NOTE | 2024-08-05 10:43 | NUR ---
Nutritional Note: Chart, meds, and labs Reviewed. Pt reported been having generalized weakness from poor oral intake as well as nonresolving diarrhea. Recommend: -low residue diet modifier added to diet order to help reduce stool frequency -Banantrol PO supplement pkt BID pre/probiotic to aid in solidifying stools. - Electrolyte replacements per protocol -Monitor PO intake%, wt, and labs -If No BM >3days consider bowel stimulant. - Please notify RD if additional nutrition concerns arise. SEE RD Nutritional Assessment for additional assessment information. Addendum: 08/05/24 at [address] Amended: Links added.
--- NOTE | 2024-08-05 11:32 | NUR ---
Discharge Planning: Pt. accepted at [facility]. Pending transfer via facility van. Discharge order in place.
[2024-08-05 11:37] VITALS: BP 128/53; PULSE 59; RESP 17; TEMP 98.2
--- NOTE | 2024-08-05 12:06 | DS ---
Discharge Summary Hospital Course Summary: The patient admitted to the hospital on August 01, 2024 with the following history of the present illness: 79-year-old female with underlying history of hypertension, SVT, hyperlipidemia, osteoporosis, history of multiple medication allergies who presented to the ER for further evaluation of diarrhea. Patient stated that her symptoms started in April where she has been having nonbloody loose stool that has been persistent. She has about 4-5 episodes of diarrhea daily. She has been taking multiple doses of loperamide with no improvement of symptoms. She has seen her PCP multiple times but her symptoms have not improved. She denied any recent use of antibiotic therapy. Denied previous diagnosis of C diff infection. She had mild lower abdominal pain from underlying diarrhea. She has had long-time history of unsteady gait and generalized weakness. Previously she has had falls as well. Denies having previous history of stroke. Patient on presentation to the hospitalist noted to be afebrile and hemodynamically stable. Labs on presentation showed WBC count of 5000, hemoglobin of 14.4, platelet count of 125317. CMP remarkable for sodium of 138, potassium 3.2, BUN of 16, creatinine of 0.7, magnesium of 1.7, AST of 44, ALT of 42, alkaline phosphatase of 86, C-reactive protein of 26.3. Patient underwent further evaluation with CT abdomen pelvis with IV contrast which showed fluid-filled loops of large and small bowel likely showing signs of gastroenteritis. Patient was admitted to the medical floor started on antibiotics as well as IV fluids. Results of urine culture growing E coli ESBL, stool cultures negative. Infectious Disease consultation requested, patient is started on meropenem. During course of the hospitalization patient's diarrhea resolved. She has remained hemodynamically stable, tolerating diet, no nausea, no vomiting, no abdominal pain. Case management consultation requested, patient accepted at [facility]) for continuation of medical manager care management(s): Infectious disease Assessment/Plan: Final diagnosis Persistent nonresolving d Diarrhea with no improvement of outpatient treatment, POA Dehydration, POA Hypokalemia, POA Hypomagnesemia, POA Gastroenteritis, POA Urinary tract infection, ESBL E. Coli, POA History of multiple antibiotic allergies including penicillin, sulfa, levofloxacin, POA Underlying history of SVT, POA Hyperlipidemia, POA History of gait instability with fall (ongoing for several years), POA Frailty/debility, POA Octogenarian, POA Discharge Instructions: Patient accepted to [facility] facility for continuation of medical care. Patient to complete 10 day course of IV meropenem per Infectious Disease recommendations. Patient to return to the hospital for condition changes. Patient agreed with plan and understood the information provided. Home Medications: Reported Medications Fluticasone Propionate (Flonase Nasal [place]) 50 Mcg/Actuation [place], 2 SPRAY NS DAILY, #16 GM 0 Refills 08/01/24 Atorvastatin Calcium (LIPITOR) 40 Mg Tablet, 1 TAB PO DAILY for 30 Days, #30 TAB 0 Refills 08/01/24 Alendronate Sodium (Alendronate Sodium) 70 Mg Tablet, 1 TAB PO QWEEK for 28 Days, #4 TAB 0 Refills in the morning, at least 30 minutes before the first food, beverage, or medication of the day 08/01/24 Furosemide (Lasix 40Mg Tab) 40 Mg Tablet, 1 TAB PO DAILY PRN for SWELLING for 30 Days, #30 TAB 0 Refills 08/01/24 Metoprolol Succinate (Metoprolol Succinate) 50 Mg Tab.er.24h, 1 TAB PO DAILY for 30 Days, #30 TAB 0 Refills 08/01/24 Discontinued Reported Medications Topiramate (Topiramate) 50 Mg Tablet, 50 MG PO BID, TAB 09/25/22 Sertraline HCl (Sertraline HCl) 100 Mg Tablet, 150 MG PO AM, TAB 09/25/22 Pantoprazole Sodium (Pantoprazole Sodium) 20 Mg Tablet.dr, 20 MG PO AM, TAB 09/25/22 Montelukast Sodium (Montelukast Sodium) 10 Mg Tablet, 10 MG PO HS, TAB 09/25/22 Metoprolol Succinate (Metoprolol Succinate) 25 Mg Tab.er.24h, 25 MG PO AM, TAB 09/25/22 Metformin HCl (Metformin HCl) 500 Mg Tablet, 500 MG PO AM, TAB 09/25/22 Loratadine (Loratadine) 10 Mg Tablet, 10 MG PO AM, TAB 09/25/22 Gabapentin (Gabapentin) 100 Mg Capsule, 100 MG PO HS, CAP 09/25/22 [fluticasone] No Conflict Check, 2 SPRAYS NASAL AD PRN for allergies 09/25/22 Bupropion HCl (Bupropion HCl) 100 Mg Tablet, 100 MG PO BID, TAB 09/25/22 Baclofen (Baclofen) 5 Mg Tablet, 5 MG PO DAILY, TAB 09/25/22 Atorvastatin Calcium (Atorvastatin Calcium) 20 Mg Tablet, 20 MG PO HS, TAB 09/25/22 Alendronate Sodium (Alendronate Sodium) 35 Mg Tablet, 35 MG PO weekly, TAB 09/25/22 Time spent arranging discharge: 31-60 minutes HARRISON DACOSTA MD Aug 05, 2024 12:06
[2024-08-05 15:11] LABS: C DIFFICILE TOXIN A/B Not Detected (Not Detected); ENTEROAGGREGATIVE ECOLI Not Detected (Not Detected); GIARDIA LAMBLIA Not Detected (Not Detected); PLESIOMONAS SHIGELOIDES Not Detected (Not Detected); SAPOVIRUS Not Detected (Not Detected); SHIGELLA/ENTEROINVASIVE E COLI Not Detected (Not Detected); VIBRIO Not Detected (Not Detected); VIBRIO CHOLERAE Not Detected (Not Detected)
--- NOTE | 2024-08-05 15:45 | NUR ---
Transfer [employer] n/r On hold with [facility] to give report. Unable to give report because they had not "received paperwork", refaxed med rec. Jessica Montgomery notified and email with rec sent. Addendum: 08/05/24 at 1627 by LONDON ROSARIO RN RN Report given to Steve AVENDANO at [facility]. 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
[2024-08-05 16:16] VITALS: BP 137/69; PULSE 64; RESP 17; TEMP 98
--- NOTE | 2024-08-05 17:07 | PN ---
GASTROENTEROLOGY PROGRESS NOTE Date of Visit: Aug 05, 2024 Time of Visit: 17:07 Events / Notes: [ ] Review of Systems: CONSTITUTIONAL: No malaise or change in sensation of wellbeing. ENMT: No rhinorrhea, otorrhea, sinus pain, ear ache. CARDIOVASCULAR: No angina, palpitations, orthopnea or paroxysmal dyspnea. RESPIRATORY: No SOB. GASTROINTESTINAL: No abdominal pain, nausea, vomiting, diarrhea, hematemesis, melena or change in the patient's habitual bowel movements consistency/number. GENITOURINARY: No dysuria, hematuria or change in bladder continence. MUSCULOSKELETAL: No new muscle pain or decrease in muscular strength. No new joint swelling, redness or tenderness. SKIN: No new rash. Physical Exam: GEN: Awake, alert, oriented in person, time and place, and in no acute distress. HEENT: No sinus tenderness. Tympanic membranes were not examined. No rhinorrhea. Oral pharyngeal mucosa is pink, moist and within normal limits. Neck is supple with no cervical lymphadenopathy, thyromegaly or JVD. CHEST: Inspection, palpation and percussion of the chest were unremarkable. Lung auscultation revealed normal breath sounds bilaterally. CARDIAC: PMI is within normal limits. Heart sounds are regular. Normal S1, S2. No gallop or murmur. ABD: Soft, non-tender and not distended. No peritoneal signs on palpation. No organomegaly. Normal bowel sounds. EXT: No cyanosis or clubbing. No edema. SKIN: Intact. No rashes. JOINTS: No evidence of synovitis or acute arthritis. NEURO: Alert and oriented to name, place and person. Cranial nerve examination is unremarkable. No focal motor deficits. Normal speech. Gait is normal. Strength is normal. Vital Signs (last 8hr) Date Time Temp Pulse Resp B/P (MAP) Pulse Ox O2 Delivery O2 Flow Rate FiO2 08/05/24 16:16 98.1 64 17 137/69 95 Room Air 08/05/24 11:37 98.2 59 17 128/53 96 Room Air Laboratory: [ ] Laboratory: Test 08/05/24 04:57 Range/Units White Blood Count 6.8 4.8-10.8 K/uL Red Blood Count 3.97 L 4.00-5.50 MIL/uL Hemoglobin 12.4 12.0-16.0 g/dL Hematocrit 36.7 36-48 % Mean Corpuscular Volume 92.4 79-99 fL Mean Corpuscular Hemoglobin 31.2 27.0-33.0 pg Mean Corpuscular Hemoglobin Concent 33.8 32.0-36.0 g/dL Red Cell Distribution Width 11.9 11.0-15.5 % Platelet Count 209 130-400 K/uL Mean Platelet Volume 10.0 7.5-10.5 fL Immature Granulocyte % (Auto) 0.4 0-1 % Neutrophils (%) (Auto) 55.8 40.0-77.0 % Lymphocytes (%) (Auto) 34.9 21.0-51.0 % Monocytes (%) (Auto) 6.5 3.0-13.0 % Eosinophils (%) (Auto) 1.8 0.0-8.0 % Basophils (%) (Auto) 0.6 0.0-5.0 % Neutrophils # (Auto) 3.8 1.8-7.7 K/uL Lymphocytes # (Auto) 2.4 1.0-4.8 K/uL Monocytes # (Auto) 0.4 0.1-1.0 K/uL Eosinophils # (Auto) 0.12 0.00-0.70 K/uL Basophils # (Auto) 0.04 0.00-0.20 K/uL Absolute Immature Granulocyte (auto 0.03 0-1 K/uL Segmented Neutrophils % 53 40-70 % Lymphocytes % (Manual) 41 22-44 % Monocytes % (Manual) 3 2-9 % Eosinophils % (Manual) 3 1-6 % Nucleated Red Blood Cells 0.0 0.0-0.19 % Differential Comment MANUAL DIFFERENTIAL White Cell Morphology Comment TOXIC GRANULATION 1+ Platelet Morphology Comment ADEQUATE Red Blood Cell Morphology ANISO 1+ Sodium Level 145 136-145 mmol/L Potassium Level 3.6 3.5-5.1 mmol/L Chloride Level 108 101-111 mmol/L Carbon Dioxide Level 30 21-32 mmol/L Blood Urea Nitrogen 13 7-18 mg/dL Creatinine 0.8 0.5-1.0 mg/dL Glomerular Filtration Rate Calc 74 >90 mL/min Random Glucose 91 70-105 mg/dL Total Calcium 8.9 8.5-10.1 mg/dL Magnesium Level 1.70 L 1.80-2.40 mg/dL Total Bilirubin 0.8 0.2-1.0 mg/dL Aspartate Amino Transf (AST/SGOT) 18 10-37 U/L Alanine Aminotransferase (ALT/SGPT) 26 12-78 U/L Alkaline Phosphatase 103 50-136 U/L Total Protein 6.3 6.0-8.3 g/dL Albumin 3.1 L 3.5-5.0 g/dL Current Medications Medications (Trade) Dose Ordered Sig/Edison Route PRN Reason Start Time Stop Time Status Last Admin Dose Admin Acetaminophen (TYLenol 325MG TAB) 650 mg Q6H PRN PO MILD PAIN (1-3) 08/03/24 17:30 09/02/24 17:29 08/05/24 08:10 650 MG Atorvastatin Calcium (LIPItor 40MG) 40 mg HS PO 08/01/24 21:00 08/31/24 20:59 08/04/24 20:46 40 MG Baclofen (Baclofen) 5 mg DAILY PO 08/02/24 09:00 09/01/24 08:59 08/05/24 08:11 5 MG Ceftriaxone Sodium (ROCEphine 1G INJ) 1 gm DAILY IVPB 08/02/24 14:00 08/03/24 12:12 DC 08/03/24 08:43 1 GM Famotidine (Pepcid 20mg Vial) 20 mg BID IV 08/01/24 21:00 08/31/24 20:59 08/05/24 08:09 20 MG Fluticasone Propionate (FLOnase 50 mcg/ spray 16g bottle) 1 SPRAY PER NARE DAILY PRN NS allergies 08/01/24 18:30 08/31/24 18:29 Magnesium Sulfate 50 ml @ 0 mls/hr PROTOCOL IV 08/01/24 15:30 08/01/24 20:33 DC Magnesium Sulfate 50 ml @ 0 mls/hr PROTOCOL IV 08/01/24 20:30 08/31/24 20:29 08/05/24 05:57 25 MLS/HR Magnesium Sulfate 50 ml @ 0 mls/hr PROTOCOL IV 08/05/24 09:00 08/05/24 08:49 DC Meropenem (Merrem) 1 gm Q8H IVPB 08/03/24 12:30 08/13/24 12:29 08/05/24 12:10 1 GM Meropenem 1 gm/ Sodium Chloride 100 ml @ 33.333 mls/ hr Q8H IVPB 08/03/24 12:30 08/03/24 12:16 DC Metoprolol Succinate (TopROL XL) 50 mg Q24H PO 08/01/24 17:00 08/31/24 16:59 08/05/24 16:29 50 MG Montelukast Sodium (SinguLAIR) 10 mg HS PO 08/01/24 21:00 08/31/24 20:59 08/04/24 20:46 10 MG Ondansetron HCl (zoFRAN 4MG INJ) 4 mg Q6H PRN IVP NAUSEA/VOMITING 08/01/24 15:30 08/31/24 15:29 Polyethylene Glycol/ Electrolytes (Golytely/Colyte Soln) 4,000 ml ONCE PO 08/01/24 15:43 08/01/24 23:59 DC 08/01/24 17:40 4,000 ML Potassium Chloride 100 ml @ 100 mls/hr AD PRN IV POTASSIUM PROTOCOL 08/01/24 15:30 08/31/24 15:29 Potassium Chloride (K-Dur/Klor-Con 20meq) 20 meq AD PRN PO POTASSIUM PROTOCOL 08/01/24 15:30 08/31/24 15:29 08/05/24 05:57 20 MEQ Potassium Chloride (KCl 10% Elixir 20meq/15ml) 20 meq AD PRN PO POTASSIUM PROTOCOL 08/01/24 15:30 08/31/24 15:29 Sodium Chloride 1,000 ml @ 100 mls/hr Q10H IV 08/01/24 15:30 08/04/24 09:41 DC 08/04/24 00:49 100 MLS/HR Diagnostics / Radiology: [COPY/PASTE HERE IF NO REPORTS PLEASE DELETE SECTION] Assessment: Diarrhea Plan: Await pathology Continue GI prophylaxis Advance diet as tolerated Avoid NSAIDs Antireflux measures Monitor H&H and transfuse as needed Call with questions, concerns or change in clinical status Patient to follow-up at clinic post discharge Thank you for this consult SANDRA PEREIRA TRANSPORTATION SUPERVISOR Aug 05, 2024 17:07
--- NOTE | 2024-08-05 18:08 | NUR ---
DISCHARGE / TRANSFER Called [facility] for eta on van pickup. Per Viviana, EMS was notified and they will be picking the patient up, EMS called by [facility]. Updated patient about pending EMS and verbalized understanding. Contacted [facility] for transportation verification pending cb/response. Patient discharge papers provided and all questions regarding dc and follow up answered. Patient IV intact on right upper arm and will remain in place during transport. Addendum: 08/05/24 at 1833 by LONDON ROSARIO RN RN [id number] - EMS here with wheelchair / van to picking tech patient for discharge and transfer to [facility]. Patient discharged with belongings including walker. Chart copy and [facility] rec originals provided to ems transporter. Patient discharged to [facility].
== END 2024-08-05 18:28 | DRG 392 ==
LOC: EDH 10:59 → EDHIP 14:02 → 3BH 19:00
PROVIDERS: ADMIT Internal Medicine; ATTEND Internal Medicine
PROC: 0DJD8ZZ Inspection of Lower Intestinal Tract, Via Natural or Artificial Opening Endoscopic (ICD-10-PCS; principal; 2024-08-02)
DX: K52.9 Noninfective gastroenteritis and colitis, unspecified (principal); N39.0 Urinary tract infection, site not specified; Z16.24 Resistance to multiple antibiotics; I10 Essential (primary) hypertension; E86.0 Dehydration; E87.6 Hypokalemia; E83.42 Hypomagnesemia; R26.89 Other abnormalities of gait and mobility; B96.20 Unspecified Escherichia coli [E. coli] as the cause of diseases classified elsewhere; E66.9 Obesity, unspecified; T36.0X5A Adverse effect of penicillins, initial encounter; E11.9 Type 2 diabetes mellitus without complications; E78.00 Pure hypercholesterolemia, unspecified; K57.30 Diverticulosis of large intestine without perforation or abscess without bleeding; M81.0 Age-related osteoporosis without current pathological fracture; Z82.0 Family history of epilepsy and other diseases of the nervous system; Z85.828 Personal history of other malignant neoplasm of skin; Z88.0 Allergy status to penicillin; Z88.1 Allergy status to other antibiotic agents; Z90.49 Acquired absence of other specified parts of digestive tract; Z90.710 Acquired absence of both cervix and uterus; Z91.81 History of falling; Z96.653 Presence of artificial knee joint, bilateral
CPT/HCPCS: 36415; 45380; 70450; 74177; 80048; 80053; 80076; 81001; 82948; 83630; 83690; 83735; 83993; 84100; 85025; 85610; 85730; 86140; 87046; 87086; 87177; 87186; 87507; 88305; 93005; 94660; 96361; 99285; A4606; G0378; J0696; J2003; J2185; J2704; J3475; J3490; J7030; Q9967; A4222; A4223; A4600; A4620; A4657